=== PATIENT | female | born 1990 | race Caucasian/White ===

== ENCOUNTER 2016-05-27 08:32 | Inpatient (IN) | payer MEDICAID ==
[2016-05-27] MEDS ORDERED: RINGERS SOLUTION,LACTATED 1,000 ML IV ONE (08:36)
[2016-05-27] MEDS ORDERED: OXYTOCIN/NORMAL SALINE 1,000 ML IV PRN ×2 (08:36→19:36)
[2016-05-27] MEDS ORDERED: MISOPROSTOL 0.2 MG TABLET ONE (08:42)
[2016-05-27] MEDS ORDERED: LIDOCAINE 1% INJ-PF (10 MG/ML) 30 ML SDV ONE (08:43)
[2016-05-27] MEDS ORDERED: OXYTOCIN/NORMAL SALINE 20 UNIT/1,000 ML RTUINJ ONE (08:43)
[2016-05-27 09:10] LABS: APPEARANCE,URINE CLOUDY; BILIRUBIN,URINE NEGATIVE (NEGATIVE); GLUCOSE, URINE NEGATIVE (NEGATIVE); KETONES,URINE NEGATIVE (NEGATIVE); LEUKOCYTE ESTERASE,URINE MODERATE (NEGATIVE); NITRITE,URINE NEGATIVE (NEGATIVE); PROTEIN,URINE NEGATIVE (NEGATIVE); URINE SPECIFIC GRAVITY 1.011; UROBILINOGEN,URINE NEGATIVE mg/dL (<2.0)
[2016-05-27 09:23] LABS: ABSOLUTE EOSINOPHILS # (AUTO) 0.1 10^3/uL (0.0-0.6); ABSOLUTE LYMPHOCYTES (AUTO) 1.6 10^3/uL (0.5-4.7); ABSOLUTE MONOCYTES (AUTO) 0.8 10^3/uL (0.1-1.4); ABSOLUTE NEUT (AUTO) 6.9 10^3/uL (1.7-8.2); BASOPHILS % (AUTO) 0.3 % (0-2); EOSINOPHILS % (AUTO) 0.8 % (0-6); HEMATOCRIT 30.7 % (36.0-47.0); HEMOGLOBIN 10.6 g/dL (12.0-15.5); HGB HCT DIFFERENCE 1.1; LYMPHOCYTES % (AUTO) 16.9 % (13-45); MEAN CORPUSCULAR HEMOGLOBIN 28.9 pg (27.0-33.4); MEAN CORPUSCULAR HGB CONC 34.6 g/dL (32.0-36.0); MEAN CORPUSCULAR VOLUME 84 fl (80-97); MONOCYTES % (AUTO) 8.1 % (3-13); RED BLOOD COUNT 3.67 10^6/uL (3.72-5.28); RED CELL DISTRIBUTION WIDTH 14.1 % (11.5-14.0); SEGMENTED NEUTROPHILS % (AUTO) 73.9 % (42-78); WHITE BLOOD COUNT 9.3 10^3/uL (4.0-10.5)
[2016-05-27 09:24] LABS: URINE BARBITURATES SCREEN NEGATIVE; URINE METHADONE SCREEN NEGATIVE; URINE OPIATES LOW NEGATIVE; URINE PHENCYCLIDINE SCREEN NEGATIVE
[2016-05-27] MEDS ORDERED: FENTANYL/BUPIVACAINE/NS/PF 200 MCG/100 ML RTUINJ EPI ONE (13:00)
[2016-05-27] MEDS ORDERED: EPHEDRINE SULFATE INJ 50 MG/1 ML AMPULE ONE (13:00)
[2016-05-27] MEDS ORDERED: BUPIVACAINE HCL 0.25 % INJ/PF (2.5 MG/1 ML) 30 ML VIAL ONE (13:00)
[2016-05-27] MEDS: RINGERS SOLUTION,LACTATED 1,000 ML IV PRN ×3 (15:11→15:21)
[2016-05-27] MEDS ORDERED: IBUPROFEN 800 MG TABLET ONE (19:21)
[2016-05-27] MEDS ORDERED: DIPH/PERTUSS(ACELL)/TETANUS VAC/PF 0.5 ML SYR (>=10YO) IM PRN (19:36)
[2016-05-27] MEDS ORDERED: BENZOCAINE/MENTHOL AEROSOL SPRAY 56 ML TOP PRN (19:36)
[2016-05-27] MEDS ORDERED: MEASLES,MUMPS&RUBELLA VACC/PF 0.5 ML VIAL SUBCUT PRN (19:36)
[2016-05-27] MEDS ORDERED: DIBUCAINE 1% OINTMENT 28 GM TP PRN (19:36)
[2016-05-27] MEDS ORDERED: ZOLPIDEM TARTRATE 5 MG TABLET PO PRN (19:36)
--- NOTE | 2016-05-27 20:01 | L&D Flow Sheet ---
LD Flowsheet Datetime Report Generated by CPN: 05/27/2016 20:00 Datetime: 05/27/2016 19:55 NBP Sys/Carli/Mean (mmHg): 125 (QS system process) : 78 (QS system process) : 97 (QS system process) Pulse: 103 (QS system process) Datetime: 05/27/2016 19:40 NBP Sys/Carli/Mean (mmHg): 126 (QS system process) : 79 (QS system process) : 98 (QS system process) Pulse: 86 (QS system process) Datetime: 05/27/2016 19:30 Level of Consciousness: Fully Conscious (Walt Blanco, RN) Headache: Denies (Walt Blanco, RN) Breath Sounds, Left: Clear and Equal (Walt Blanco, RN) Breath Sounds, Right: Clear and Equal (Walt Bella, RN) Nausea/Vomiting: Present (Annotations: Has some nausea present ) (Walt Blanco, RN) Pitocin (milliunit): Pitocin Remains (milliunits) @ (Walt Bella, RN) Datetime: 05/27/2016 19:25 NBP Sys/Carli/Mean (mmHg): 125 (QS system process) : 80 (QS system process) : 96 (QS system process) Pulse: 96 (QS system process) Datetime: 05/27/2016 19:15 Stage of : Recovery (Walt Blanco RN) Pain Scale: 2 (Walt Blanco RN) Pain Presence: Constant (Walt Blanco RN) Pain Type: Burning (Walt Blanco RN) Pain Location: Perineum (Walt Blanco RN) Pain Goal: 0 (Walt Blanco RN) Pain Relief Measures: Pain Medication Given; Comfort Measures (Annotations: Ibuprofen 800mg) (Walt Blanco RN) Datetime: 05/27/2016 19:10 NBP Sys/Carli/Mean (mmHg): 127 (QS system process) : 77 (QS system process) : 98 (QS system process) Pulse: 86 (QS system process) Datetime: 05/27/2016 18:55 Stage of : Recovery (Tiffanie Ivonne Roulund, RN) NBP Sys/Carli/Mean (mmHg): 131 (QS system process) : 80 (QS system process) : 98 (QS system process) Pulse: 92 (QS system process) Respirations: 18 (Tiffanie Rowe RN) Pain Scale: 2 (Tiffanie Rowe RN) Pain Presence: Constant (Tiffanie Rowe RN) Pain Type: Burning (Tiffanie Rowe RN) Pain Location: Perineum (Tiffanie Rowe RN) Pain Relief Measures: Comfort Measures (Tiffanie Rowe RN) Datetime: 05/27/2016 18:41 Stage of : Recovery (Tiffanie Rowe RN) NBP Sys/Carli/Mean (mmHg): 132 (QS system process) : 78 (QS system process) : 97 (QS system process) Pulse: 93 (QS system process) Respirations: 20 (Tiffanie Rowe RN) Temperature (F): 98.5 (Tiffanie Rowe RN) Temperature (C): 36.9 (QS system process) Temperature Route: Oral (Tiffanie Rowe RN) Pain Scale: 3 (Tiffanie Rowe RN) Pain Presence: Constant (Tiffanie Rowe RN) Pain Type: Burning (Tiffanie Rowe RN) Pain Location: Perineum (Tiffanie Rowe, DELIA) Pain Relief Measures: Comfort Measures (Tiffanie Rowe RN) Datetime: 05/27/2016 18:25 Stage of : Recovery (Tiffanie Rowe RN) NBP Sys/Carli/Mean (mmHg): 138 (QS system process) : 65 (QS system process) : 94 (QS system process) Pulse: 104 (QS system process) Respirations: 20 (Tiffanie Rowe RN) Pain Scale: 3 (Tiffanie Rowe RN) Pain Presence: Constant (Tiffanie Rowe RN) Pain Type: Burning (Tiffanie Rowe RN) Pain Location: Perineum (Tiffanie Rowe RN) Pain Goal: 1 (Tiffanie Rowe RN) Pain Relief Measures: Comfort Measures (Tiffanie Rowe RN) Datetime: 05/27/2016 18:13 Stage of : Labor (Tiffanie Rowe RN) Respirations: 22 (Tiffanie Rowe RN) Monitor Mode: External; Palpation (Tiffanie Rowe RN) Frequency (min): 2-2.5 (Tiffanie Ivonne Roulund, RN) Quality: Moderate to Strong (Tiffanie Rowe RN) Duration (sec): 60-70 (Tifafnie Rowe, RN) Resting Tone (Palpate): Relaxed (Tiffanie Rowe, DELIA) Monitor Mode: External US (Tiffanie Rowe RN) Monitor Interventions for FHR: Ultrasound Adjusted (Tiffanie Rowe RN) FHR Baseline Rate : 95 (Tiffanie Rowe RN) FHR Baseline Changes: Bradycardia (Tiffanie Rowe, DELIA) Variability: Moderate 6-25 bpm (Tiffanie Rowe, RN) Accelerations: 15X15 (Tiffanie Rowe, RN) Decelerations: None (Tiffanie Rowe, DELIA) Comments: U/S HELD IN PLACE (Tiffanie Rowe, DELIA) Pain Scale: 5 (Tiffanie Rowe, DELIA) Pain Presence: Intermittent (Tiffanie Rowe RN) Pain Type: Pressure (Tiffanie Rowe RN) Pain Location: Perineum (Tiffanie Rowe, DELIA) Pain Relief Measures: Comfort Measures (Tiffanie Rowe RN) Pitocin (milliunit): Pitocin Increased to (milliunits) @ 18 (Tiffanie Rowe, DELIA) IV/Blood Work: IV Infusing per Order (Tiffanie Rowe, RN) Comfort Measures: Coaching; Family Support (Tiffanie Rowe, DELIA) Provider Reviewed Strip: Yes (Tiffanie Rowe RN) Pushing: Coached on Pushing; Urge to Push (Tiffanie Rowe, DELIA) Pushing Position: Pushing with Contractions; Pushing Lithotomy (Tiffanie Rowe, RN) Pushing Progress: Descent with Pushing; Perineal Bulging; Rectal Bulging; with Pushing; Pushing Effectively with Contractions (Tiffanie Rowe, DELIA) Stage 2 Comments: OF VIABLE MALE @ 1813, APGARS 8/9. SEE DELIVERY SUMMARY (Tiffanie Rowe, DELIA) Communication: RN at Bedside; RN Reviewed Strip; Provider at Bedside (Tiffanie Rowe RN) Communication Comments: MD REMAINED @ BS (Tiffanie Rowe RN) LaborFlag: Labor (QS system process) Datetime: 05/27/2016 18:01 Pitocin (milliunit): Pitocin Increased to (milliunits) @ 18 (Tiffanie Rowe RN) Datetime: 05/27/2016 18:00 Stage of : Labor (Tiffanie Rowe RN) NBP Sys/Carli/Mean (mmHg): 135 (QS system process) : 81 (QS system process) : 102 (QS system process) Pulse: 139 (QS system process) Respirations: 22 (Tiffanie Rowe RN) Monitor Mode: External (Tiffanie Rowe RN) Monitor Interventions for UA: Mcneal Adjusted (Tiffanie Rowe RN) Frequency (min): 1.5-3 (Tiffanie Rowe RN) Quality: Moderate to Strong (Tiffanie Rowe RN) Duration (sec): 60-70 (Tiffanie Ivonne Roulund, RN) Resting Tone (Palpate): Relaxed (Tiffanie Rowe, RN) Monitor Mode: External US (Tiffanie Rowe, RN) Monitor Interventions for FHR: Ultrasound Adjusted (Tiffanie Rowe, RN) FHR Baseline Rate : 95 (Tiffanie Rowe, RN) FHR Baseline Changes: No Baseline Change (Tiffanie Rowe, RN) Variability: Moderate 6-25 bpm (Tiffanie Rowe, RN) Accelerations: 15X15 (Tiffanie Rowe, RN) Decelerations: None (Tiffanie Rowe, RN) Comments: U/S HELD IN PLACE (Tiffanie Rowe, RN) Pain Scale: 5 (Tiffanie Rowe, DELIA) Pain Presence: Intermittent (Tiffanie Rowe, RN) Pain Type: Pressure (Tiffanie Rowe, RN) Pain Location: Perineum (Tiffanie Rowe, RN) Pain Relief Measures: Comfort Measures (Tiffanie Rowe, DELIA) Pitocin (milliunit): Pitocin Increased to (milliunits) @ 18 (Tiffanie Rowe, RN) IV/Blood Work: IV Infusing per Order (Tiffanie Rowe, DELIA) Comfort Measures: Coaching; Family Support (Tiffanie Rowe, DELIA) Provider Reviewed Strip: Yes (Tiffanie Rowe, DELIA) Pushing: Coached on Pushing; Urge to Push (Tiffanie Rowe, RN) Pushing Position: Pushing with Contractions; Pushing Lithotomy (Tiffanie Rowe, RN) Pushing Progress: Descent with Pushing; Perineal Bulging; Rectal Bulging; Presenting Part Visible; Pushing Effectively with Contractions (Tiffanie Rowe, RN) Communication: RN at Bedside; RN Reviewed Strip; Provider at Bedside (Tiffanie Rowe, DELIA) LaborFlag: Labor (QS system process) Datetime: 05/27/2016 17:47 NBP Sys/Carli/Mean (mmHg): 132 (QS system process) : 76 (QS system process) : 97 (QS system process) Pulse: 136 (QS system process) LaborFlag: Labor (QS system process) Datetime: 05/27/2016 17:34 Communication: RN at Bedside; Provider at Bedside (Tiffanie Rowe RN) Communication Comments: DR ROSA @ BS (Tiffanie Rowe RN) Datetime: 05/27/2016 17:30 Stage of : Labor (Tiffanie Rowe RN) Respirations: 22 (Tiffanie Rowe RN) Monitor Mode: External (Tiffanie Rowe RN) Frequency (min): 1.5-2.5 (Tiffanie Rowe, DELIA) Quality: Moderate to Strong (Tiffanie Rowe, DELIA) Duration (sec): 60-70 (Tiffanie Rowe, RN) Resting Tone (Palpate): Relaxed (Tiffanie Rowe RN) Monitor Mode: External US (Tiffanie Rowe RN) Monitor Interventions for FHR: Ultrasound Adjusted (Tiffanie Rowe RN) FHR Baseline Rate : 100 (Tiffanie Rowe RN) FHR Baseline Changes: No Baseline Change (Tiffanie Rowe, DELIA) Variability: Moderate 6-25 bpm (Tiffanie Rowe, DELIA) Accelerations: 15X15 (Tiffanie Rowe, DELIA) Decelerations: None (Tiffanie Rowe, DELIA) Pain Presence: Intermittent (Tiffanie Rowe RN) Pain Type: Pressure (Tiffanie Rowe RN) Pain Location: Perineum (Tiffanie Rowe RN) Pain Relief Measures: Comfort Measures (Tiffanie Rowe RN) Pitocin (milliunit): Pitocin Remains (milliunits) @ 16 (Tiffanie Rowe, RN) IV/Blood Work: IV Infusing per Order (Tiffanie Rowe, DELIA) Comfort Measures: Coaching; Family Support (Tiffanie Rowe, DELIA) Pushing: Coached on Pushing; Urge to Push (Tiffanie Rowe, DELIA) Pushing Position: Pushing with Contractions; Pushing Lithotomy (Tiffanie Rowe, RN) Pushing Progress: Descent with Pushing; Perineal Bulging; Rectal Bulging; Presenting Part Visible; Pushing Effectively with Contractions (Tiffanie Rowe, DELIA) Communication: RN at Bedside; RN Reviewed Strip (Tiffanie Rowe RN) LaborFlag: Labor (QS system process) Datetime: 05/27/2016 17:16 NBP Sys/Carli/Mean (mmHg): 125 (QS system process) : 77 (QS system process) : 96 (QS system process) Pulse: 123 (QS system process) LaborFlag: Labor (QS system process) Datetime: 05/27/2016 17:15 Respirations: 22 (Tiffanie Rowe RN) Monitor Mode: External; Palpation (Tiffanie Rowe RN) Frequency (min): 1.5-2.5 (Tiffanie Rowe RN) Quality: Moderate to Strong (Tiffanie Rowe RN) Duration (sec): 60-70 (Tiffanie oRwe RN) Resting Tone (Palpate): Relaxed (Tiffanie Rowe RN) Monitor Mode: External US (Tiffanie Rowe RN) Monitor Interventions for FHR: Ultrasound Adjusted (Tiffanie Rowe RN) FHR Baseline Rate : 115 (Tiffanie Rowe RN) FHR Baseline Changes: No Baseline Change (Tiffanie Rowe RN) Variability: Moderate 6-25 bpm (Tiffanie Rowe RN) Accelerations: 15X15 (Tiffanie Rowe RN) Decelerations: None (Tiffanie Rowe RN) Pain Scale: 4 (Tiffanie Rowe, DELIA) Pain Presence: Intermittent (Tiffanie Rowe RN) Pain Type: Pressure (Tiffanie Rowe RN) Pain Location: Perineum (Tiffanie Rowe, DELIA) Pain Relief Measures: Comfort Measures (Tiffanie Rowe, DELIA) Pitocin (milliunit): Pitocin Remains (milliunits) @ 16 (Tiffanie Rowe, DELIA) IV/Blood Work: IV Infusing per Order (Tiffanie Rowe, DELIA) Comfort Measures: Coaching; Family Support (Tiffanie Rowe, DELIA) Pushing: Coached on Pushing; Urge to Push (Tiffanie Rowe, DELIA) Pushing Position: Pushing with Contractions; Pushing Lithotomy (Tiffanie Rowe, DELIA) Pushing Progress: Descent with Pushing; Perineal Bulging; Rectal Bulging; Presenting Part Visible; Pushing Effectively with Contractions (Tiffanie Rowe, DELIA) LaborFlag: Labor (QS system process) Datetime: 05/27/2016 17:01 NBP Sys/Carli/Mean (mmHg): 118 (QS system process) : 83 (QS system process) : 97 (QS system process) Pulse: 113 (QS system process) LaborFlag: Labor (QS system process) Datetime: 05/27/2016 17:00 Stage of : Labor (Tiffanie Rowe RN) Respirations: 22 (Tiffanie Rowe, RN) Monitor Mode: External (Tiffanie Rowe, RN) Monitor Interventions for UA: Mcneal Adjusted (Tiffanie Rowe, RN) Frequency (min): 1.5-2.5 (Tiffanie Rowe, DELIA) Quality: Moderate to Strong (Tiffanie Rowe, DELIA) Duration (sec): 60-70 (Tiffanie Rowe, RN) Resting Tone (Palpate): Relaxed (Tiffanie Rowe, DELIA) Monitor Mode: External US (Tiffanie Rowe, DELIA) Monitor Interventions for FHR: Ultrasound Adjusted (Tiffanie Rowe, DELIA) FHR Baseline Rate : 115 (Tiffanie Rowe, DELIA) FHR Baseline Changes: Unable to Determine (Tiffanie Rowe, DELIA) Variability: Moderate 6-25 bpm (Tiffanie Rowe, DELIA) Accelerations: None (Tiffanie Rowe, DELIA) Decelerations: Early; Variable (Tiffanie Rowe, DELIA) Pain Scale: 4 (Tiffanie Rowe, DELIA) Pain Presence: Intermittent (Tiffanie Rowe, DELIA) Pain Type: Pressure (Tiffanie Rowe, DELIA) Pain Location: Perineum (Tiffanie Rowe, DELIA) Pain Relief Measures: Comfort Measures (Tiffanie Rowe, DELIA) Station: 3 (Tiffanie Rowe RN) Exam by: ADINA ROWE RN (Tiffanie Rowe, RN) Pitocin (milliunit): Pitocin Remains (milliunits) @ 16 (Tiffanie Rowe, DELIA) IV/Blood Work: IV Infusing per Order (Tiffanie Rowe RN) Procedures: Sterile Vag Exam (Tiffanie Rowe RN) Comfort Measures: Coaching; Family Support (Tiffanie Rowe RN) Pushing: Coached on Pushing; Urge to Push (Tiffanie Rowe RN) Pushing Position: Pushing with Contractions; Pushing Lithotomy (Tiffanie Rowe RN) Pushing Progress: Perineal Bulging; Pushing Effectively with Contractions (Tiffanie Rowe RN) Communication: RN at Bedside; RN Reviewed Strip (Tiffanie Rowe RN) LaborFlag: Labor (QS system process) Datetime: 05/27/2016 16:53 I/O Interventions: Burton Discontinued (Tiffanie Rowe RN) Datetime: 05/27/2016 16:47 NBP Sys/Carli/Mean (mmHg): 134 (QS system process) : 89 (QS system process) : 108 (QS system process) Pulse: 153 (QS system process) LaborFlag: Labor (QS system process) Datetime: 05/27/2016 16:45 Stage of : Labor (Tiffanie Rowe RN) Respirations: 22 (Tiffanie Rowe RN) Monitor Mode: External; Palpation (Tiffanie Rowe, DELIA) Frequency (min): 1.5-3 (Tiffanie Rowe, DELIA) Quality: Moderate to Strong (Tiffanie Rowe RN) Duration (sec): 60-70 (Tiffanie Rowe, RN) Resting Tone (Palpate): Relaxed (Tiffanie Rowe, RN) Monitor Mode: External US (Tiffanie Rowe, RN) FHR Baseline Rate : 145 (Tiffanie Rowe RN) FHR Baseline Changes: No Baseline Change (Tiffanie Rowe, DELIA) Variability: Moderate 6-25 bpm (Tiffanie Rowe, RN) Accelerations: None (Tiffanie Rowe, RN) Decelerations: Early (Tiffanie Rowe, DELIA) Pain Scale: 4 (Tiffanie Rowe, RN) Pain Presence: Intermittent (Tiffanie Rowe, RN) Pain Type: Pressure (Tiffanie Rowe, RN) Pain Location: Perineum (Tiffanie Rowe, DELIA) Pain Relief Measures: Comfort Measures (Tiffanie Rowe RN) Pitocin (milliunit): Pitocin Remains (milliunits) @ 16 (Tiffanie Rowe, RN) IV/Blood Work: IV Infusing per Order (Tiffanie Rowe, DELIA) Comfort Measures: Coaching; Family Support (Tiffanie Rowe RN) Pushing: Coached on Pushing; Urge to Push (Tiffanie Rowe RN) Pushing Position: Pushing with Contractions; Pushing Lithotomy (Tiffanie Rowe RN) Pushing Progress: Pushing Effectively with Contractions (Tiffanie Rowe RN) Communication: RN at Bedside; RN Reviewed Strip (Tiffanie Rowe RN) LaborFlag: Labor (QS system process) Datetime: 05/27/2016 16:38 Stage of : Labor (Tiffanie Rowe RN) Pushing: Coached on Pushing; Urge to Push (Tiffanie Rowe RN) Pushing Position: Pushing with Contractions; Pushing Lithotomy (Tiffanie Rowe RN) Pushing Progress: Ineffective Pushing (Tiffanie Rowe RN) Communication: RN at Bedside (Annotations: RN REMAINS @ BS WHILE PUSHING) (Tiffanie Rowe RN) Datetime: 05/27/2016 16:30 Stage of : Labor (Tiffanie Rowe RN) NBP Sys/Carli/Mean (mmHg): 123 (QS system process) : 84 (QS system process) : 98 (QS system process) Pulse: 117 (QS system process) Respirations: 22 (Tiffanie Rowe RN) Monitor Mode: External (Tiffanie Rowe RN) Frequency (min): 1-3 (Tiffanie Rowe RN) Quality: Moderate to Strong (Tiffanie Rowe RN) Resting Tone (Palpate): Relaxed (Tiffanie Rowe RN) Monitor Mode: External US (Tiffanie Rowe RN) Monitor Interventions for FHR: Ultrasound Adjusted (Tiffanie Rowe RN) FHR Baseline Rate : 135 (Tiffanie Rowe RN) FHR Baseline Changes: No Baseline Change (Tiffanie Rowe RN) Variability: Moderate 6-25 bpm (Tiffanie Rowe RN) Accelerations: None (Tiffanie Rowe RN) Decelerations: Early; Variable (Tiffanie Rowe RN) Pain Scale: 4 (Tiffanie Rowe RN) Pain Presence: Intermittent (Tiffanie Rowe RN) Pain Type: Pressure (Tiffanie Rowe RN) Pain Location: Perineum (Tiffanie Rowe, DELIA) Pain Relief Measures: Comfort Measures (Tiffanie Rowe RN) Pain Coping: Breathing Through Contractions (Tiffanie Rowe RN) Dilatation (cm): 10.0 (Tiffanie Rowe RN) Effacement (%): 100 (Tiffanie Rowe, DELIA) Station: 2 (Tiffanie Rowe, DELIA) Exam by: ADINA ROWE RN (Tiffanie Rowe, RN) Pitocin (milliunit): Pitocin Remains (milliunits) @ 16 (Tiffanie Rowe, DELIA) IV/Blood Work: IV Infusing per Order (Tiffanie Rowe RN) Procedures: Sterile Vag Exam (Tiffanie Rowe RN) Patient Position/Activity: Low Fowlers (Tiffanie Rowe RN) Comfort Measures: Breathing/Relaxation; Coaching; Family Support (Tiffanie Rowe RN) Communication: RN at Bedside; RN Reviewed Strip (Tiffanie Rowe RN) LaborFlag: Labor (QS system process) Datetime: 05/27/2016 16:20 Stage of : Labor (Tiffanie Rowe RN) Communication: Report Given to @ DR MOE BONDS CNM (Tiffanie Rowe RN) Notification Reason: Status Update; Labor Status; Pain; Other (Tiffanie Rowe RN) Communication Comments: SVE (Tiffanie Rowe RN) Datetime: 05/27/2016 16:17 NBP Sys/Carli/Mean (mmHg): 133 (QS system process) : 91 (QS system process) : 102 (QS system process) Pulse: 113 (QS system process) LaborFlag: Labor (QS system process) Datetime: 05/27/2016 16:15 Stage of : Labor (Tiffanie Rowe RN) Respirations: 20 (Tiffanie Rowe, DELIA) Monitor Mode: External; Palpation (Tiffanie Rowe RN) Monitor Interventions for UA: Mcneal Adjusted (Tiffanie Rowe RN) Frequency (min): 1.5-3 (Tiffanie Rowe RN) Quality: Moderate to Strong (Tiffanie Rowe RN) Duration (sec): 60-70 (Tiffanie Rowe, DELIA) Resting Tone (Palpate): Relaxed (Tiffanie Rowe, DELIA) Monitor Mode: External US (Tiffanie Rowe, DELIA) Monitor Interventions for FHR: Ultrasound Adjusted (Tiffanie Rowe RN) FHR Baseline Rate : 115 (Tiffanie Rowe RN) FHR Baseline Changes: No Baseline Change (Tfifanie Rowe, DELIA) Variability: Moderate 6-25 bpm (Tiffanie Rowe RN) Accelerations: 15X15 (Tiffanie Rowe, DELIA) Decelerations: Variable (Tiffanie Rowe, DELIA) Pain Scale: 2 (Tiffanie Rowe RN) Pain Presence: Intermittent (Tiffanie Rowe RN) Pain Type: Pressure (Tiffanie Rowe RN) Pain Location: Perineum (Tiffanie Rowe, DELIA) Pain Relief Measures: Comfort Measures (Tiffanie Rowe RN) Pain Coping: Breathing Through Contractions (Tiffanie Rowe RN) Pitocin (milliunit): Pitocin Remains (milliunits) @ 16 (Tiffanie Rowe RN) IV/Blood Work: IV Infusing per Order (Tiffanie Rowe, RN) Patient Position/Activity: Left Extreme; Peanut Ball (Tiffanie Rowe, DELIA) Comfort Measures: Family Support (Tiffanie Rowe, RN) Communication: RN at Bedside; RN Reviewed Strip (Tiffanie Rowe RN) LaborFlag: Labor (QS system process) Datetime: 05/27/2016 16:06 NBP Sys/Carli/Mean (mmHg): 129 (QS system process) : 82 (QS system process) : 99 (QS system process) Pulse: 105 (QS system process) LaborFlag: Labor (QS system process) Datetime: 05/27/2016 16:02 Stage of : Labor (Tiffanie Rowe RN) Respirations: 20 (Tiffanie Rowe RN) Monitor Mode: External; Palpation (Tiffanie Rowe RN) Monitor Interventions for UA: Mcneal Adjusted (Tiffanie Rowe RN) Frequency (min): 1.5-4 (Tiffanie Rowe, RN) Quality: Moderate to Strong (Tiffanie Rowe, RN) Duration (sec): 55-70 (Tiffanie Rowe, RN) Resting Tone (Palpate): Relaxed (Tiffanie Rowe, RN) Monitor Mode: External US (Tiffanie Rowe, RN) Monitor Interventions for FHR: Ultrasound Adjusted (Tiffanie Rowe RN) FHR Baseline Rate : 130 (Tiffanie Rowe, RN) FHR Baseline Changes: No Baseline Change (Tiffanie Rowe, RN) Variability: Moderate 6-25 bpm (Tiffanie Rowe, RN) Accelerations: 15X15 (Tiffanie Rowe, RN) Decelerations: Prolonged (Tiffanie Rowe, RN) Pain Scale: 2 (Tiffanie Rowe, DELIA) Pain Presence: Intermittent (Tiffanie Rowe, RN) Pain Type: Pressure (Tiffanie Rowe, RN) Pain Location: Perineum (Tiffanie Rowe, RN) Pain Relief Measures: Comfort Measures (Tiffanie Rowe, RN) Pain Coping: Breathing Through Contractions (Tiffanie Rowe, RN) Pitocin (milliunit): Pitocin Remains (milliunits) @ 16 (Tiffanie Rowe, RN) IV/Blood Work: IV Infusing per Order (Tiffanie Rowe, RN) Patient Position/Activity: Left Extreme; Peanut Ball (Tiffanie Roew, RN) Comfort Measures: Coaching; Family Support (Tiffanie Rowe, RN) Instructional Method: Verbal; Patient Instructed; Family/Support Person Instructed; Verbalized Understanding (Tiffanie Rowe, RN) Plan of Care: Labor (Tiffanie Rowe, RN) Labor/Induction: Labor Stages (Tiffanie Rowe, DELIA) Pain Management: Comfort Measures (Tiffanie Rowe, RN) Communication: RN at Bedside; RN Reviewed Strip (Tiffanie Rowe, DELIA) LaborFlag: Labor (QS system process) Datetime: 05/27/2016 15:45 Stage of : Labor (Tiffanie Rowe, DELIA) NBP Sys/Carli/Mean (mmHg): 106 (QS system process) : 59 (QS system process) : 78 (QS system process) Pulse: 90 (QS system process) Respirations: 20 (Tiffanie Rowe, RN) Monitor Mode: External; Palpation (Tiffanie Rowe, RN) Monitor Interventions for UA: Mcneal Adjusted (Tiffanie Rowe RN) Frequency (min): 1.5-3 (Tiffanie Rowe, DELIA) Quality: Moderate (Tiffanie Rowe, RN) Duration (sec): 55-70 (Tiffanie Rowe, RN) Resting Tone (Palpate): Relaxed (Tiffanie Rowe, RN) Monitor Mode: External US (Tiffanie Rowe, RN) Monitor Interventions for FHR: Ultrasound Adjusted (Tiffanie Rowe, RN) FHR Baseline Rate : 125 (Tiffanie Rowe, RN) FHR Baseline Changes: No Baseline Change (Tiffanie Rowe, RN) Variability: Moderate 6-25 bpm (Tiffanie Rowe, RN) Accelerations: None (Tiffanie Rowe, RN) Decelerations: Early; Variable (Tiffanie Rowe, DELIA) Pain Relief Measures: Comfort Measures (Tiffanie Rowe, DELIA) Pain Coping: Talking Through Contractions (Tiffanie Rowe, DELIA) Pitocin (milliunit): Pitocin Increased to (milliunits) @ (Annotations: 16) (Tiffanie Rowe, DELIA) IV/Blood Work: IV Infusing per Order (Tiffanie Rowe RN) Patient Position/Activity: Peanut Ball; Right Extreme (Tiffanie Rowe, DELIA) Comfort Measures: Family Support (Tiffanie Rowe RN) I/O Interventions: Popsicle (Tiffanie Rowe, RN) Communication: RN at Bedside; RN Reviewed Strip (Tiffanie Rowe RN) LaborFlag: Labor (QS system process) Datetime: 05/27/2016 15:31 NBP Sys/Carli/Mean (mmHg): 128 (QS system process) : 75 (QS system process) : 97 (QS system process) Pulse: 103 (QS system process) LaborFlag: Labor (QS system process) Datetime: 05/27/2016 15:20 Stage of : Labor (Tiffanie Rowe RN) IV/Blood Work: New IV Bag Hung (Tiffanie Rowe RN) Communication: RN at Bedside (Tiffanie Rowe RN) Datetime: 05/27/2016 15:16 Stage of : Labor (Tiffanie Rowe RN) NBP Sys/Carli/Mean (mmHg): 118 (QS system process) : 75 (QS system process) : 91 (QS system process) Pulse: 93 (QS system process) Respirations: 18 (Tiffanie Rowe RN) Monitor Mode: External (Tiffanie Rowe RN) Frequency (min): 2-4 (Tiffanie Rowe RN) Quality: Moderate (Tiffanie Rowe RN) Duration (sec): 50-70 (Tiffanie Rowe, DELIA) Resting Tone (Palpate): Relaxed (Tiffanie Rowe, DELIA) Monitor Mode: External US (Tiffanie Rowe RN) FHR Baseline Rate : 125 (Tiffanie Rowe RN) FHR Baseline Changes: No Baseline Change (Tiffanie Rowe, DELIA) Variability: Moderate 6-25 bpm (Tiffanie Rowe, RN) Accelerations: 15X15 (Tiffanie Rowe, RN) Decelerations: Variable (Tiffanie Rowe, DELIA) Pain Relief Measures: Comfort Measures (Tiffanie Rowe, RN) Pain Coping: Talking Through Contractions (Tiffanie Rowe, DELIA) Pitocin (milliunit): Pitocin Increased to (milliunits) @ 14 (Tiffanie Rowe, DELIA) IV/Blood Work: IV Infusing per Order (Tiffanie Rowe, DELIA) Patient Position/Activity: Left Extreme; Peanut Ball (Tiffanie Rowe, RN) Comfort Measures: Family Support (Tiffanie Rowe RN) Communication: RN at Bedside; RN Reviewed Strip (Tiffanie Rowe RN) LaborFlag: Labor (QS system process) Datetime: 05/27/2016 15:00 Stage of : Labor (Tiffanie Rowe RN) Respirations: 18 (Tiffanie Rowe RN) Temperature (F): 98.1 (Tiffanie Rowe RN) Temperature (C): 36.7 (QS system process) Monitor Mode: External; Palpation (Tiffanie Rowe RN) Monitor Interventions for UA: Mcneal Adjusted (Tiffanie Rowe RN) Frequency (min): 2-3.5 (Tiffanie Rowe RN) Quality: Moderate (Tiffanie Rowe RN) Duration (sec): 55-60 (Tiffanie Rowe, DELIA) Resting Tone (Palpate): Relaxed (Tiffanie Rowe RN) Monitor Mode: External US (Tiffanie Rowe RN) Monitor Interventions for FHR: Ultrasound Adjusted (Tiffanie Rowe RN) FHR Baseline Rate : 125 (Tiffanie Rowe RN) FHR Baseline Changes: No Baseline Change (Tiffanie Rowe RN) Variability: Moderate 6-25 bpm (Tiffanie Rowe RN) Accelerations: 15X15 (Tiffanie Rowe RN) Decelerations: Early (Tiffanie Rowe RN) Pain Scale: 0 (Tiffanie Rowe RN) Pain Presence: None/Denies (Tiffanie Rowe RN) Pain Type: Pressure (Tiffanie Rowe RN) Pain Location: Abdomen; Perineum (Tiffanie Rowe RN) Pain Relief Measures: Comfort Measures (Tiffanie Rowe RN) Pain Coping: Talking Through Contractions (Tiffanie Rowe RN) Pitocin (milliunit): Pitocin Increased to (milliunits) @ 12 (Tiffanie Rowe RN) IV/Blood Work: IV Infusing per Order (Tiffanie Rowe RN) Patient Position/Activity: Left Extreme; Peanut Ball (Tiffanie Rowe, DELIA) Comfort Measures: Family Support (Tiffanie Rowe RN) Communication: RN at Bedside; RN Reviewed Strip (Tiffanie Rowe RN) LaborFlag: Labor (QS system process) Datetime: 05/27/2016 14:48 Stage of : Labor (Tiffanie Rowe RN) Patient Position/Activity: Left Extreme; Peanut Ball (Tiffanie Rowe RN) Communication: RN at Bedside (Tiffanie Rowe RN) Datetime: 05/27/2016 14:46 Stage of : Labor (Tiffanie Rowe, DELIA) NBP Sys/Carli/Mean (mmHg): 111 (QS system process) : 77 (QS system process) : 90 (QS system process) Pulse: 100 (QS system process) Dilatation (cm): 4.0 (Tiffanie Rowe, DELIA) Effacement (%): 80 (Tiffanie Rowe, RN) Station: -1 (Tiffanie Rowe, RN) Exam by: Surendra BONDS CNM (Tiffanie Rowe, RN) Amniotic Fluid Color: Clear (Tiffanie Rowe, DELIA) Vaginal Bleeding: Normal Show (Tiffanie Rowe RN) Cervix, Consistency: Soft (Tiffanie Rowe, DELIA) Cervix, Position: Midposition (Tiffanie Rowe, DELIA) Pitocin (milliunit): Pitocin Remains (milliunits) @ 10 (Tiffanie Rowe, DELIA) Provider Reviewed Strip: Yes (Tiffanie Rowe, DELIA) Communication: RN at Bedside; RN Reviewed Strip; Provider at Bedside (Tiffanie Rowe, DELIA) Communication Comments: Surendra BONDS CNM @ BS (Tiffanie Rowe, DELIA) LaborFlag: Labor (QS system process) Datetime: 05/27/2016 14:43 Pulse: 113 (QS system process) SpO2 (%): 100 (QS system process) LaborFlag: Labor (QS system process) Datetime: 05/27/2016 14:42 Respirations: 18 (Tiffanie Rowe RN) Monitor Mode: External (Tiffanie Rowe RN) Frequency (min): 2-2.5 (Tiffanie Rowe RN) Quality: Moderate (Tiffanie Rowe RN) Duration (sec): 60-80 (Tiffanie Rowe RN) Resting Tone (Palpate): Relaxed (Tiffanie Rowe RN) Monitor Mode: External US (Tiffanie Rowe RN) FHR Baseline Rate : 125 (Tiffanie Rowe RN) FHR Baseline Changes: No Baseline Change (Tiffanie Rowe RN) Variability: Moderate 6-25 bpm (Tiffanie Rowe RN) Accelerations: 15X15 (Tiffanie Rowe, DELIA) Decelerations: Early (Tiffanie Rowe, DELIA) Pain Scale: 0 (Tiffanie Rowe RN) Pain Presence: Intermittent (Tiffanie Rowe RN) Pain Type: Pressure (Tiffanie Rowe, DELIA) Pain Location: Abdomen; Perineum (Tiffanie Rowe, RN) Pain Relief Measures: Comfort Measures (Tiffanie Rowe RN) Pain Coping: Talking Through Contractions (Tiffanie Rowe RN) Procedures: Sterile Vag Exam (Tiffanie Rowe, DELIA) Patient Position/Activity: Right Tilt; Low Fowlers (Tiffanie Rowe, DELIA) Comfort Measures: Family Support (Tiffanie Rowe RN) LaborFlag: Labor (QS system process) Datetime: 05/27/2016 14:38 Pulse: 93 (QS system process) SpO2 (%): 100 (QS system process) LaborFlag: Labor (QS system process) Datetime: 05/27/2016 14:33 Pulse: 98 (QS system process) SpO2 (%): 100 (QS system process) LaborFlag: Labor (QS system process) Datetime: 05/27/2016 14:32 NBP Sys/Carli/Mean (mmHg): 108 (QS system process) : 63 (QS system process) : 75 (QS system process) Pulse: 100 (QS system process) LaborFlag: Labor (QS system process) Datetime: 05/27/2016 14:30 Stage of : Labor (Tiffanie Rowe RN) Respirations: 18 (Tiffanie Rowe RN) Monitor Mode: External; Palpation (Tiffanie Rowe RN) Monitor Interventions for UA: Mcneal Adjusted (Tiffanie Rowe RN) Frequency (min): 2-3 (Tiffanie Rowe RN) Quality: Moderate (Tiffanie Rowe, DELIA) Duration (sec): 60-80 (Tiffanie Rowe, DELIA) Resting Tone (Palpate): Relaxed (Tiffanie Rowe RN) Monitor Mode: External US (Tiffanie Rowe RN) Monitor Interventions for FHR: Ultrasound Adjusted (Tiffanie Rowe RN) FHR Baseline Rate : 115 (Tiffanie Rowe RN) FHR Baseline Changes: No Baseline Change (Tiffanie Rowe, DELIA) Variability: Moderate 6-25 bpm (Tiffanie Rowe, DELIA) Accelerations: 15X15 (Tiffanie Rowe, DELIA) Decelerations: Early; Variable (Tiffanie Rowe RN) Pain Scale: 0 (Tiffanie Rowe RN) Pain Presence: Intermittent (Tiffanie Rowe RN) Pain Type: Pressure (Tiffanie Rowe RN) Pain Location: Abdomen; Perineum (Tiffanie Rowe RN) Pain Relief Measures: Comfort Measures (Tiffanie Rowe RN) Pain Coping: Talking Through Contractions (Tiffanie Rowe RN) Pitocin (milliunit): Pitocin Remains (milliunits) @ 10 (Tiffanie Rowe RN) IV/Blood Work: IV Infusing per Order (Tiffanie Rowe RN) Patient Position/Activity: Right Lateral; Low Fowlers (Tiffanie Rowe RN) Comfort Measures: Family Support (Tiffanie Rowe RN) Communication: RN at Bedside; RN Reviewed Strip (Tiffanie Rowe RN) LaborFlag: Labor (QS system process) Datetime: 05/27/2016 14:28 Pulse: 107 (QS system process) SpO2 (%): 100 (QS system process) LaborFlag: Labor (QS system process) Datetime: 05/27/2016 14:23 NBP Sys/Carli/Mean (mmHg): 117 (QS system process) : 78 (QS system process) : 91 (QS system process) Pulse: 100 (QS system process) Pulse: 93 (QS system process) SpO2 (%): 98 (QS system process) LaborFlag: Labor (QS system process) Datetime: 05/27/2016 14:18 Pulse: 91 (QS system process) SpO2 (%): 98 (QS system process) LaborFlag: Labor (QS system process) Datetime: 05/27/2016 14:17 NBP Sys/Carli/Mean (mmHg): 121 (QS system process) : 76 (QS system process) : 93 (QS system process) Pulse: 101 (QS system process) LaborFlag: Labor (QS system process) Datetime: 05/27/2016 14:15 Stage of : Labor (Tiffanie Rowe RN) Monitor Mode: External; Palpation (Tiffanie Rowe, DELIA) Monitor Interventions for UA: Mcneal Adjusted (Tiffanie Rowe, DELIA) Frequency (min): 2-2.5 (Tiffanie Rowe, DELIA) Quality: Moderate (Tiffanie Rowe RN) Duration (sec): 60-80 (Tiffanie Rowe, RN) Resting Tone (Palpate): Relaxed (Tifafnie Rowe, RN) Monitor Mode: External US (Tiffanie Rowe RN) FHR Baseline Rate : 115 (Tiffanie Rowe RN) FHR Baseline Changes: No Baseline Change (Tiffanie Rowe, DELIA) Variability: Moderate 6-25 bpm (Tiffanie Rowe, RN) Accelerations: None (Tiffanie Rowe, DELIA) Decelerations: Early (Tiffanie Rowe, DELIA) Pain Relief Measures: Comfort Measures (Tiffanie Rowe, DELIA) Pain Coping: Talking Through Contractions (Tiffanie Rowe, DELIA) Pitocin (milliunit): Pitocin Remains (milliunits) @ 10 (Tiffanie Rowe, RN) IV/Blood Work: IV Infusing per Order (Tiffanie Rowe, RN) Patient Position/Activity: Right Tilt; Low Fowlers (Tiffanie Rowe, RN) Communication: RN at Bedside; RN Reviewed Strip (Tiffanie Rowe, DELIA) LaborFlag: Labor (QS system process) Datetime: 05/27/2016 14:13 Pulse: 99 (QS system process) SpO2 (%): 100 (QS system process) LaborFlag: Labor (QS system process) Datetime: 05/27/2016 14:12 NBP Sys/Carli/Mean (mmHg): 118 (QS system process) : 75 (QS system process) : 91 (QS system process) Pulse: 103 (QS system process) LaborFlag: Labor (QS system process) Datetime: 05/27/2016 14:08 Pulse: 84 (QS system process) SpO2 (%): 100 (QS system process) LaborFlag: Labor (QS system process) Datetime: 05/27/2016 14:07 NBP Sys/Carli/Mean (mmHg): 120 (QS system process) : 70 (QS system process) : 89 (QS system process) Pulse: 88 (QS system process) LaborFlag: Labor (QS system process) Datetime: 05/27/2016 14:03 Pulse: 95 (QS system process) SpO2 (%): 100 (QS system process) LaborFlag: Labor (QS system process) Datetime: 05/27/2016 14:02 NBP Sys/Carli/Mean (mmHg): 114 (QS system process) : 67 (QS system process) : 82 (QS system process) Pulse: 97 (QS system process) LaborFlag: Labor (QS system process) Datetime: 05/27/2016 14:01 NBP Sys/Calri/Mean (mmHg): 111 (QS system process) : 56 (QS system process) : 78 (QS system process) Pulse: 92 (QS system process) LaborFlag: Labor (QS system process) Datetime: 05/27/2016 14:00 Stage of : Labor (Tiffanie Rowe RN) NBP Sys/Carli/Mean (mmHg): 118 (QS system process) : 67 (QS system process) : 85 (QS system process) Pulse: 96 (QS system process) Respirations: 20 (Tiffanie Roew RN) Monitor Mode: External (Tiffanie Rowe RN) Monitor Interventions for UA: Mcneal Adjusted (Tiffanie Rowe RN) Frequency (min): 2-2.5 (Tiffanie Rowe RN) Quality: Moderate (Tiffanie Rowe RN) Duration (sec): 55-70 (Tiffanie Rowe RN) Resting Tone (Palpate): Relaxed (Tiffanie Rowe RN) Monitor Mode: External US (Tiffanie Rowe RN) FHR Baseline Rate : 110 (Tiffanie Rowe RN) FHR Baseline Changes: No Baseline Change (Tiffanie Rowe, DELIA) Variability: Moderate 6-25 bpm (Tiffanie Rowe, DELIA) Accelerations: None (Tiffanie Rowe RN) Decelerations: Early (Tiffanie Rowe, DELIA) Pain Scale: 0 (Tiffanie Rowe RN) Pain Presence: None/Denies (Tiffanie Rowe, DELIA) Pain Type: Pressure (Tiffanie Rowe, DELIA) Pain Location: Abdomen; Perineum (Tiffanie Rowe, RN) Pain Relief Measures: Comfort Measures (Tiffanie Rowe, DELIA) Pain Coping: Talking Through Contractions (Tiffanie Rowe, DELIA) Pitocin (milliunit): Pitocin Remains (milliunits) @ 10 (Tiffanie Rowe, DELIA) IV/Blood Work: IV Infusing per Order (Tiffanie Rowe, DELIA) Patient Position/Activity: Low Fowlers (Tiffanie Rowe, DELIA) Communication: RN at Bedside; RN Reviewed Strip (Tiffanie Rowe, DELIA) LaborFlag: Labor (QS system process) Datetime: 05/27/2016 13:59 NBP Sys/Carli/Mean (mmHg): 102 (QS system process) : 54 (QS system process) : 75 (QS system process) Pulse: 95 (QS system process) LaborFlag: Labor (QS system process) Datetime: 05/27/2016 13:58 NBP Sys/Carli/Mean (mmHg): 114 (QS system process) : 59 (QS system process) : 77 (QS system process) Pulse: 110 (QS system process) Pulse: 106 (QS system process) SpO2 (%): 97 (QS system process) LaborFlag: Labor (QS system process) Datetime: 05/27/2016 13:56 NBP Sys/Carli/Mean (mmHg): 108 (QS system process) NBP Sys/Carli/Mean (mmHg): 106 (QS system process) : 60 (QS system process) : 61 (QS system process) : 80 (QS system process) : 77 (QS system process) Pulse: 83 (QS system process) Pulse: 107 (QS system process) I/O Interventions: Burton Cath Inserted (Tiffanie Rowe RN) Communication: RN at Bedside (Tiffanie Rowe RN) LaborFlag: Labor (QS system process) Datetime: 05/27/2016 13:54 Stage of : Labor (Tiffanie Rowe RN) NBP Sys/Carli/Mean (mmHg): 114 (QS system process) NBP Sys/Carli/Mean (mmHg): 107 (QS system process) : 69 (QS system process) : 66 (QS system process) : 86 (QS system process) : 81 (QS system process) Pulse: 88 (QS system process) Pulse: 106 (QS system process) Hygiene: Underpad Changed (Tiffanie Rowe RN) Anesthesia Level Check: T9 (Tiffanie Rowe RN) LaborFlag: Labor (QS system process) Datetime: 05/27/2016 13:53 Stage of : Labor (Tiffanie Rowe RN) NBP Sys/Carli/Mean (mmHg): 119 (QS system process) : 72 (QS system process) : 89 (QS system process) Pulse: 110 (QS system process) Pulse: 88 (QS system process) SpO2 (%): 100 (QS system process) Patient Position/Activity: Right Tilt; Low Fowlers (Tiffanie Rowe RN) Communication: RN at Bedside; RN Reviewed Strip (Tiffanie Rowe RN) LaborFlag: Labor (QS system process) Datetime: 05/27/2016 13:49 Stage of : Labor (Tiffanie Rowe, DELIA) NBP Sys/Carli/Mean (mmHg): 201 (QS system process) : 154 (QS system process) : 172 (QS system process) Pulse: 91 (QS system process) Epidural Procedure Other: Pump Started (Tiffanie Rowe, RN) LaborFlag: Labor (QS system process) Datetime: 05/27/2016 13:48 Pulse: 100 (QS system process) SpO2 (%): 100 (QS system process) LaborFlag: Labor (QS system process) Datetime: 05/27/2016 13:46 Stage of : Labor (Tiffanie Rowe RN) NBP Sys/Carli/Mean (mmHg): 132 (QS system process) : 85 (QS system process) : 105 (QS system process) Pulse: 88 (QS system process) Epidural Procedure: Loading Dose (Tiffanie Rowe RN) LaborFlag: Labor (QS system process) Datetime: 05/27/2016 13:45 Stage of : Labor (Tiffanie Rowe RN) NBP Sys/Carli/Mean (mmHg): 130 (QS system process) : 91 (QS system process) : 105 (QS system process) Pulse: 100 (QS system process) Respirations: 20 (Tiffanie Rowe RN) Monitor Mode: External; Palpation (Tiffanie Rowe RN) Monitor Interventions for UA: Mcneal Adjusted (Tiffanie Rowe RN) Frequency (min): 1.5-2 (Tiffanie Rowe RN) Quality: Moderate (Tiffanie Rowe, RN) Duration (sec): 60-70 (Tiffanie Rowe, RN) Resting Tone (Palpate): Relaxed (Tiffanie Rowe, DELIA) Monitor Mode: External US (Tiffanie Rowe RN) Monitor Interventions for FHR: Ultrasound Adjusted (Tiffanie Rowe RN) FHR Baseline Rate : 105 (Tiffanie Rowe RN) FHR Baseline Changes: Bradycardia (Tiffanie Rowe RN) Variability: Moderate 6-25 bpm (Tiffanie Rowe RN) Accelerations: 15X15 (Tiffanie Rowe, RN) Decelerations: None (Tiffanie Rowe RN) Pain Scale: 5 (Tiffanie Rowe RN) Pain Presence: Intermittent (Tiffanie Rowe RN) Pain Type: Contraction (Tiffanie Rowe RN) Pain Location: Abdomen (Tiffanie Rowe RN) Pain Relief Measures: Comfort Measures (Tiffanie Rowe RN) Pain Coping: Breathing Through Contractions (Tiffanie Rowe RN) Pitocin (milliunit): Pitocin Remains (milliunits) @ 12 (Tiffanie Rowe RN) Comfort Measures: Breathing/Relaxation; Coaching (Tiffanie Rowe RN) Epidural Procedure: Cath Placed (Tiffanie Rowe RN) Communication: RN at Bedside; RN Reviewed Strip; Provider at Bedside (Tiffanie Rowe RN) LaborFlag: Labor (QS system process) Datetime: 05/27/2016 13:44 NBP Sys/Carli/Mean (mmHg): 134 (QS system process) : 94 (QS system process) : 110 (QS system process) Pulse: 106 (QS system process) Anesthesia Plans: Epidural (Tiffanie Rowe RN) Epidural Procedure: Test Dose (Tiffanie Rowe RN) LaborFlag: Labor (QS system process) Datetime: 05/27/2016 13:43 NBP Sys/Carli/Mean (mmHg): 133 (QS system process) : 87 (QS system process) : 105 (QS system process) Pulse: 92 (QS system process) Pulse: 93 (QS system process) SpO2 (%): 99 (QS system process) LaborFlag: Labor (QS system process) Datetime: 05/27/2016 13:35 Stage of : Labor (Tiffanie Rowe RN) Procedure Type: EPIDURAL (Tiffanie Rowe RN) Procedure Verify: Correct Patient Identity; Correct Side and Site are Marked; Accurate Procedure Consent Form; Agreement on Procedure to be Done; Correct Patient Position (Tiffanie Rowe RN) Anesthesia Plans: Epidural (Tiffanie Rowe RN) Epidural Positioning: Sitting (Tiffanie Rowe RN) Anesthesia Comments: DR SPANN @ BS (Tiffanie Rowe RN) Datetime: 05/27/2016 13:31 NBP Sys/Carli/Mean (mmHg): 133 (QS system process) : 88 (QS system process) : 105 (QS system process) Pulse: 111 (QS system process) LaborFlag: Labor (QS system process) Datetime: 05/27/2016 13:29 Stage of : Labor (Tiffanie Rowe RN) Respirations: 22 (Tiffanie Rowe RN) Monitor Mode: External (Tiffanie Rowe RN) Frequency (min): 1.5-2 (Tiffanie Rowe RN) Quality: Moderate (Tiffanie Rowe RN) Duration (sec): 60-80 (Tiffanie Rowe RN) Resting Tone (Palpate): Relaxed (Tiffanie Rowe RN) Monitor Mode: External US (Tiffanie Rowe RN) FHR Baseline Rate : 115 (Tiffanie Rowe RN) FHR Baseline Changes: No Baseline Change (Tiffanie Rowe RN) Variability: Moderate 6-25 bpm (Tiffanie Rowe RN) Accelerations: 15X15 (Tiffanie Rowe RN) Decelerations: None (Tiffanie Rowe RN) Pain Scale: 5 (Tiffanie Ivonne Roulund, RN) Pain Presence: Intermittent (Tiffanie Rowe RN) Pain Type: Contraction (Tiffanie Rowe RN) Pain Location: Abdomen (Tiffanie Rowe RN) Pain Relief Measures: Comfort Measures (Tiffanie Rowe RN) Pain Coping: Breathing Through Contractions (Tiffanie Rowe RN) Pitocin (milliunit): Pitocin Remains (milliunits) @ 12 (Tiffanie Rwoe RN) Patient Position/Activity: High Fowlers (Tiffanie Rowe RN) Comfort Measures: Breathing/Relaxation; Coaching; Rocking Chair; Family Support (Tiffanie Rowe RN) Communication: RN at Bedside; RN Reviewed Strip (Tiffanie Rowe RN) LaborFlag: Labor (QS system process) Datetime: 05/27/2016 13:15 Stage of : Labor (Tiffanie Rowe RN) IV/Blood Work: New IV Bag Hung (Tiffanie Rowe RN) Communication: RN at Bedside; RN Reviewed Strip (Tiffanie Rowe RN) Datetime: 05/27/2016 13:08 Stage of : Labor (Tiffanie Rowe RN) Pitocin (milliunit): Pitocin Decreased to (milliunits) @ 12 (Tiffanie Rowe RN) Procedure Verify: Correct Patient Identity; Agreement on Procedure to be Done (Tiffanie Rowe RN) Anesthesia Plans: Epidural (Tiffanie Rowe RN) Communication: RN at Bedside; RN Reviewed Strip (Tiffanie Rowe RN) Datetime: 05/27/2016 13:00 Stage of : Labor (Tiffanie Rowe RN) NBP Sys/Carli/Mean (mmHg): 138 (QS system process) : 88 (QS system process) : 108 (QS system process) Pulse: 92 (QS system process) Respirations: 22 (Tiffanie Rowe RN) Temperature (F): 98.0 (Tiffanie Rowe RN) Temperature (C): 36.7 (QS system process) Temperature Route: Oral (Tiffanie Rowe RN) Monitor Mode: External (Tiffanie Rowe RN) Frequency (min): 1.5-2 (Tiffanie Rowe RN) Quality: Moderate (Tiffanie Rowe RN) Duration (sec): 60-80 (Tiffanie Rowe RN) Pattern: Tachysystole: > 5 Contractions in 10 Minutes (Tiffanie Rowe RN) Resting Tone (Palpate): Relaxed (Tiffanie Rowe RN) Monitor Mode: External US (Tiffanie Rowe RN) FHR Baseline Rate : 115 (Tiffanie Rowe RN) FHR Baseline Changes: No Baseline Change (Tiffanie Rowe RN) Variability: Moderate 6-25 bpm (Tiffanie Rowe RN) Accelerations: 15X15 (Tiffanie Rowe RN) Decelerations: None (Tiffanie Rowe RN) Pain Scale: 5 (Tiffanie Rowe RN) Pain Presence: Intermittent (Tiffanie Rowe RN) Pain Type: Contraction (Tiffanie Rowe RN) Pain Location: Abdomen (Tiffanie Rowe, DELIA) Pain Relief Measures: Comfort Measures (Tiffanie Rowe RN) Pain Coping: Breathing Through Contractions (Tiffanie Rowe RN) Pitocin (milliunit): Pitocin Remains (milliunits) @ 16 (Tiffanie Rowe, DELIA) Patient Position/Activity: High Fowlers (Tiffanie Rowe, DELIA) Comfort Measures: Breathing/Relaxation; Coaching; Family Support (Tiffanie Rowe RN) Communication: RN at Bedside; RN Reviewed Strip (Tiffanie Rowe RN) LaborFlag: Labor (QS system process) Datetime: 05/27/2016 12:45 Stage of : Labor (Tiffanie Rowe RN) Respirations: 22 (Tiffanie Rowe RN) Monitor Mode: External (Tiffanie Rowe RN) Frequency (min): 1-3 (Tiffanie Rowe RN) Quality: Moderate (Tiffanie Rowe RN) Duration (sec): 60-80 (Tiffanie Rowe, DELIA) Resting Tone (Palpate): Relaxed (Tiffanie Rowe RN) Monitor Mode: External US (Tiffanie Rowe RN) FHR Baseline Rate : 125 (Tiffanie Rowe RN) FHR Baseline Changes: No Baseline Change (Tiffanie Rowe RN) Variability: Moderate 6-25 bpm (Tiffanie Rowe RN) Accelerations: 15X15 (Tiffanie Rowe, DELIA) Decelerations: None (Tiffanie Rowe, DELIA) Pain Scale: 4 (Tiffanie Rowe RN) Pain Presence: Intermittent (Tiffanie Rowe RN) Pain Type: Contraction (Tiffanie Rowe RN) Pain Location: Abdomen (Tiffanie Rowe, DELIA) Pain Relief Measures: Comfort Measures (Tiffanie Rowe RN) Pitocin (milliunit): Pitocin Remains (milliunits) @ 16 (Tiffanie Rowe, DELIA) IV/Blood Work: New IV Bag Hung (Tiffanie Rowe, RN) Patient Position/Activity: High Fowlers (Tiffanie Rowe, DELIA) Comfort Measures: Breathing/Relaxation; Coaching; Family Support (Tiffanie Rowe, DELIA) Communication: RN at Bedside; RN Reviewed Strip (Tiffanie Rowe, DELIA) LaborFlag: Labor (QS system process) Datetime: 05/27/2016 12:40 Stage of : Labor (Tiffanie Rowe RN) Pain Scale: 4 (Tiffanie Rowe, RN) Pain Presence: Intermittent (Tiffanie Rowe RN) Pain Type: Contraction (Tiffanie Rowe RN) Pain Location: Abdomen (Tiffanie Rowe, RN) Pain Relief Measures: Comfort Measures (Tiffanie Rowe, RN) Pain Coping: Breathing Through Contractions; Requesting Pain Medication or Epidural (Tiffanie Rowe, RN) IV/Blood Work: IV Bolus Started (Tiffanie Rowe, RN) Comfort Measures: Breathing/Relaxation; Coaching; Hot/Cold Pack; Family Support (Tiffanie Rowe, RN) Procedure Verify: Correct Patient Identity; Agreement on Procedure to be Done; Relevant Images and Results are Properly Labeled and Displayed (Tiffanie Rowe, DELIA) Anesthesia Plans: Epidural (Tiffanie Rowe, DELIA) Communication: RN at Bedside; RN Reviewed Strip; Provider Orders Received (Tiffanie Rowe, DELIA) Notification Reason: Pain (Tiffanie Rowe RN) Communication Comments: orders for epidural obtained (Tiffanie Rowe, DELIA) LaborFlag: Labor (QS system process) Datetime: 05/27/2016 12:31 NBP Sys/Carli/Mean (mmHg): 125 (QS system process) : 80 (QS system process) : 99 (QS system process) Pulse: 82 (QS system process) LaborFlag: Labor (QS system process) Datetime: 05/27/2016 12:30 Stage of : Labor (Tiffnaie Rowe RN) Respirations: 20 (Tiffanie Rowe RN) Monitor Mode: External (Tiffanie Rowe RN) Frequency (min): 1.5-2.5 (Tiffanie Rowe RN) Quality: Moderate (Tiffanie Rowe RN) Duration (sec): 55-70 (Tiffanie Rowe, DELIA) Resting Tone (Palpate): Relaxed (Tiffanie Rowe RN) Monitor Mode: External US (Tiffanie Rowe RN) FHR Baseline Rate : 135 (Tiffanie Rowe RN) FHR Baseline Changes: No Baseline Change (Tiffanie Rowe RN) Variability: Moderate 6-25 bpm (Tiffanie Rowe RN) Accelerations: None (Tiffanie Rowe RN) Decelerations: Early (Tiffanie Rowe RN) Pain Scale: 3 (Tiffanie Rowe RN) Pain Presence: Intermittent (Tiffanie Rowe RN) Pain Type: Contraction (Tiffanie Rowe RN) Pain Location: Abdomen (Tiffanie Rowe RN) Pain Relief Measures: Comfort Measures (Tiffanie Rowe RN) Pain Coping: Breathing Through Contractions (Tiffanie Rowe RN) Pitocin (milliunit): Pitocin Remains (milliunits) @ 16 (Tiffanie Rowe, DELIA) Patient Position/Activity: High Fowlers (Tiffanie Rowe, DELIA) Comfort Measures: Breathing/Relaxation; Family Support (Tiffanie Rowe, DELIA) Communication: RN at Bedside; RN Reviewed Strip (Tiffanie Rowe RN) LaborFlag: Labor (QS system process) Datetime: 05/27/2016 12:16 Stage of : Labor (Tiffanie Rowe RN) Monitor Mode: External (Tiffanie Rowe RN) Frequency (min): 1.5-2 (Tiffanie Rowe RN) Quality: Moderate (Tiffanie Rowe RN) Duration (sec): 55-70 (Tiffanie Rowe RN) Resting Tone (Palpate): Relaxed (Tiffanie Rowe RN) Monitor Mode: External US (Tiffanie Rowe RN) FHR Baseline Rate : 120 (Tiffanie Rowe RN) FHR Baseline Changes: No Baseline Change (Tiffanie Rowe RN) Variability: Moderate 6-25 bpm (Tiffanie Rwoe, DELIA) Accelerations: 15X15 (Tiffanie Rowe RN) Decelerations: None (Tiffanie Rowe RN) Pain Relief Measures: Comfort Measures (Tiffanie Rowe RN) Pain Coping: Breathing Through Contractions (Tiffanie Rowe, DELIA) Pitocin (milliunit): Pitocin Remains (milliunits) @ 16 (Tiffanie Rowe RN) IV/Blood Work: IV Infusing per Order (Tiffanie Rowe, DELIA) Patient Position/Activity: High Fowlers (Tiffanie Rowe, DELIA) Comfort Measures: Breathing/Relaxation; Family Support (Tiffanie Rowe RN) Communication: RN at Bedside; RN Reviewed Strip (Tiffanie Rowe RN) LaborFlag: Labor (QS system process) Datetime: 05/27/2016 12:00 Stage of : Labor (Tiffanie Rowe RN) NBP Sys/Carli/Mean (mmHg): 123 (QS system process) : 91 (QS system process) : 105 (QS system process) Pulse: 87 (QS system process) Respirations: 20 (Tiffanie Rowe RN) Monitor Mode: External (Tiffanie Rowe RN) Frequency (min): 1.5-2.5 (Tiffanie Rowe RN) Quality: Moderate (Tiffanie Rowe RN) Resting Tone (Palpate): Relaxed (Tiffanie Rowe RN) Monitor Mode: External US (Tiffanie Rowe RN) FHR Baseline Rate : 120 (Tiffanie Rowe RN) FHR Baseline Changes: Bradycardia (Tiffanie Rowe RN) Variability: Moderate 6-25 bpm (Tiffanie Rowe RN) Accelerations: Prolonged (Tiffanie Rowe RN) Decelerations: None (Tiffanie Rowe RN) Pain Scale: 2 (Tiffanie Rowe RN) Pain Presence: Intermittent (Tiffanie Rowe RN) Pain Type: Contraction (Tiffanie Rowe RN) Pain Location: Abdomen (Tiffanie Rowe RN) Pain Relief Measures: Comfort Measures (Tiffanie Rowe RN) Pain Coping: Breathing Through Contractions (Tiffanie Rowe RN) Pitocin (milliunit): Pitocin Remains (milliunits) @ 16 (Tiffanie Rowe, RN) IV/Blood Work: IV Infusing per Order (Tiffanie Rowe, DELIA) Patient Position/Activity: High Fowlers (Tiffanie Rowe, DELIA) Comfort Measures: Breathing/Relaxation; Coaching; Family Support (Tiffanie Rowe, DELIA) I/O Interventions: Popsicle (Tiffanie Rowe RN) Communication: RN at Bedside; RN Reviewed Strip (Tiffanie Rowe RN) LaborFlag: Labor (QS system process) Datetime: 05/27/2016 11:50 Stage of : Labor (Tiffanie Rowe RN) Dilatation (cm): 2.5 (Tiffanie Rowe RN) Effacement (%): 80 (Tiffanie Rowe RN) Station: -1 (Tiffanie Rowe RN) Exam by: Surendra BONDS CNM (Tiffanie Rowe, DELIA) Membrane Status: Ruptured (Tiffanie Rowe RN) Membranes Rupture Method: Artificial (Tiffanie Rowe, DELIA) Amniotic Fluid Color: Clear (Tiffanie Rowe RN) Amniotic Fluid Amount: Small (Tiffanie Rowe RN) Amniotic Fluid Odor: None (Tiffanie Rowe, DELIA) Vaginal Bleeding: Scant (Tiffanie Rowe RN) Cervix, Consistency: Moderate (Tiffanie Rowe RN) Cervix, Position: Midposition (Tiffanie Ivonne Roulund, RN) Procedures: Sterile Vag Exam (Tiffanie Rowe RN) Provider Reviewed Strip: Yes (Tiffanie Rowe, RN) Communication: RN at Bedside; RN Reviewed Strip; Provider at Bedside (Tiffanie Rowe RN) Datetime: 05/27/2016 11:46 Stage of : Labor (Tiffanie Rowe RN) Respirations: 20 (Tiffanie Rowe RN) Monitor Mode: External (Tiffanie Rowe RN) Monitor Interventions for UA: Mcneal Adjusted (Tiffanie Rowe, DELIA) Frequency (min): 1.5-2 (Tiffanie Rowe RN) Quality: Mild/Moderate (Tiffanie Rowe RN) Duration (sec): 60-70 (Tiffanie Rowe, RN) Resting Tone (Palpate): Relaxed (Tiffanie Rowe, RN) Monitor Mode: External US (Tiffanie Rowe RN) Monitor Interventions for FHR: Ultrasound Adjusted (Tiffanie Rowe RN) FHR Baseline Rate : 125 (Tiffanie Rowe, RN) FHR Baseline Changes: No Baseline Change (Tiffaine Rowe, RN) Variability: Moderate 6-25 bpm (Tiffanie Rowe, DELIA) Accelerations: 15X15 (Tiffanie Rowe, DELIA) Decelerations: None (Tiffanie Rowe, DELIA) Pain Relief Measures: Comfort Measures (Tiffanie Rowe RN) Pain Coping: Breathing Through Contractions (Tiffanie Rowe RN) Pitocin (milliunit): Pitocin Increased to (milliunits) @ 16 (Tiffanie Rowe, RN) IV/Blood Work: IV Infusing per Order (Tiffanie Rowe, RN) Comfort Measures: Coaching; Rocking Chair; Family Support (Tiffanie Rowe, RN) I/O Interventions: Up to BR (Tiffanie Rowe, RN) Communication: RN at Bedside; RN Reviewed Strip (Tiffanie Rowe RN) LaborFlag: Labor (QS system process) Datetime: 05/27/2016 11:31 Stage of : Antepartum (Tiffanie Rowe RN) NBP Sys/Carli/Mean (mmHg): 132 (QS system process) : 78 (QS system process) : 96 (QS system process) Pulse: 77 (QS system process) Respirations: 18 (Tiffanie Rowe RN) Monitor Mode: External (Tiffanie Rowe RN) Frequency (min): 2-3 (Tiffanie Rowe RN) Quality: Mild (Tiffanie Rowe RN) Duration (sec): 60-90 (Tiffanie Rowe, DELIA) Resting Tone (Palpate): Relaxed (Tiffanie Rowe, RN) Monitor Mode: External US (Tiffanie Rowe RN) FHR Baseline Rate : 135 (Tiffanie Rowe RN) FHR Baseline Changes: No Baseline Change (Tiffanie Rowe RN) Variability: Moderate 6-25 bpm (Tiffanie Rowe RN) Accelerations: 15X15 (Tiffanie Rowe RN) Decelerations: None (Tiffanie Rowe, DELIA) Pain Scale: 1 (Tiffanie Rowe, DELIA) Pain Presence: Intermittent (Tiffanie Rowe RN) Pain Type: Cramping (Tiffanie Rowe, RN) Pain Location: Abdomen (Tiffanie Rowe, DELIA) Pain Relief Measures: Comfort Measures (Tiffanie Rowe, DELIA) Pain Coping: Talking Through Contractions (Tiffanie Rowe RN) Pitocin (milliunit): Pitocin Increased to (milliunits) @ 14 (Tiffanie Rowe, DELIA) IV/Blood Work: IV Infusing per Order (Tiffanie Rowe, DELIA) Comfort Measures: Rocking Chair; Family Support (Tiffanie Rowe, DELIA) Communication: RN at Bedside; RN Reviewed Strip (Tiffanie Rowe RN) LaborFlag: Antepartum (QS system process) Datetime: 05/27/2016 11:16 NBP Sys/Carli/Mean (mmHg): 118 (QS system process) : 80 (QS system process) : 96 (QS system process) Pulse: 85 (QS system process) LaborFlag: Antepartum (QS system process) Datetime: 05/27/2016 11:15 Stage of : Antepartum (Tiffanie Rowe RN) Respirations: 18 (Tiffanie Rowe RN) Monitor Mode: External (Tiffanie Rowe RN) Frequency (min): 1.5-3 (Tiffanie Rowe RN) Quality: Mild (Tiffanie Rowe RN) Duration (sec): 60-120 (Tiffanie oRwe, DELIA) Resting Tone (Palpate): Relaxed (Tiffanie Rowe RN) Monitor Mode: External US (Tiffanie Rowe RN) FHR Baseline Rate : 130 (Tiffanie Rowe RN) FHR Baseline Changes: No Baseline Change (Tiffanie Rowe RN) Variability: Moderate 6-25 bpm (Tiffanie Rowe RN) Accelerations: 15X15 (Tiffanie Rowe, DELIA) Decelerations: None (Tiffanie Rowe, DELIA) Pain Relief Measures: Comfort Measures (Tiffanie Rowe RN) Pain Coping: Talking Through Contractions (Tiffanie Rowe, DELIA) Pitocin (milliunit): Pitocin Increased to (milliunits) @ 12 (Tiffanie Rowe, DELIA) IV/Blood Work: IV Infusing per Order (Tiffanie Rowe, DELIA) Comfort Measures: Rocking Chair; Family Support (iTffanie Rowe, DELIA) Communication: RN at Bedside; RN Reviewed Strip (Tiffanie Rowe RN) LaborFlag: Antepartum (QS system process) Datetime: 05/27/2016 11:02 Stage of : Antepartum (Tiffanie Rowe RN) NBP Sys/Carli/Mean (mmHg): 165 (QS system process) : 87 (QS system process) : 114 (QS system process) Pulse: 129 (QS system process) Respirations: 18 (Tiffanie Rowe RN) Monitor Mode: External (Tiffanie Rowe RN) Frequency (min): 1.5-2 (Tiffanie Rowe RN) Quality: Mild (Tiffanie Rowe RN) Duration (sec): 60-120 (Tiffanie Rowe RN) Resting Tone (Palpate): Relaxed (Tiffanie Rowe RN) Monitor Mode: External US (Tiffanie Rowe RN) FHR Baseline Rate : 135 (Tiffanie Rowe RN) FHR Baseline Changes: No Baseline Change (Tiffanie Rowe RN) Variability: Moderate 6-25 bpm (Tiffanie Rowe, DELIA) Accelerations: 15X15 (Tiffanie Rowe, DELIA) Decelerations: None (Tiffanie Rowe RN) Pain Scale: 1 (Tiffanie Rowe RN) Pain Presence: Intermittent (Tiffanie Rowe RN) Pain Type: Cramping (Tiffanie Rowe RN) Pain Location: Abdomen (Tiffanie Rowe RN) Pain Relief Measures: Comfort Measures (Tiffanie Rowe RN) Pain Coping: Talking Through Contractions (Tiffanie Rowe, DELIA) Nausea/Vomiting: Present (Tiffanie Rowe, DELIA) Pitocin (milliunit): Pitocin Increased to (milliunits) @ 10 (Tiffanie Rowe, DELIA) IV/Blood Work: IV Infusing per Order (Tiffanie Rowe, DLEIA) Comfort Measures: Rocking Chair; Family Support (Tiffanie Rowe RN) Communication: RN at Bedside; RN Reviewed Strip (Tiffanie Rowe RN) LaborFlag: Antepartum (QS system process) Datetime: 05/27/2016 10:45 Stage of : Antepartum (Tiffanie Rowe RN) Monitor Mode: External (Tiffanie Rowe RN) Frequency (min): 2-3 (Tiffanie Rowe RN) Quality: Mild (Tiffanie Rowe RN) Duration (sec): 60-80 (Tiffanie Rowe RN) Resting Tone (Palpate): Relaxed (Tiffanie Rowe RN) Monitor Mode: External US (Tiffanie Rowe RN) FHR Baseline Rate : 130 (Tiffanie Rowe RN) FHR Baseline Changes: No Baseline Change (Tiffanie Rowe RN) Variability: Moderate 6-25 bpm (Tiffanie Rowe, DELIA) Accelerations: 15X15 (Tiffanie Rowe RN) Decelerations: None (Tiffanie Rowe RN) Pain Relief Measures: Comfort Measures (Tiffanie Rowe RN) Pain Coping: Talking Through Contractions (Tiffanie Rowe, DELIA) Pitocin (milliunit): Pitocin Increased to (milliunits) @ 8 (Tiffanie Rowe, DELIA) IV/Blood Work: IV Infusing per Order (Tiffanie Rowe, DELIA) Comfort Measures: Rocking Chair; Family Support (Tiffanie Rowe, DELIA) Communication: RN at Bedside; RN Reviewed Strip (Tiffanie Rowe RN) LaborFlag: Antepartum (QS system process) Datetime: 05/27/2016 10:32 Stage of : Antepartum (Tiffanie Rowe RN) NBP Sys/Carli/Mean (mmHg): 119 (QS system process) : 80 (QS system process) : 94 (QS system process) Pulse: 82 (QS system process) Respirations: 18 (Tiffanie Rowe RN) Monitor Mode: External (Tiffanie Rowe RN) Frequency (min): 1.5-4 (Tiffanie Rowe RN) Quality: Mild (Tiffanie Rowe RN) Duration (sec): 60-130 (Tiffanie Rowe RN) Resting Tone (Palpate): Relaxed (Tiffanie Rowe RN) Monitor Mode: External US (Tiffanei Rowe RN) FHR Baseline Rate : 130 (Tiffanie Rowe RN) FHR Baseline Changes: No Baseline Change (Tiffanie Rowe RN) Variability: Moderate 6-25 bpm (Tiffanie Rowe RN) Accelerations: 15X15 (Tiffanie Rowe RN) Decelerations: None (Tiffanie Rowe RN) Pain Scale: 1 (Tiffanie Rowe RN) Pain Presence: Intermittent (Tiffanie Rowe RN) Pain Type: Cramping (Tiffanie Rowe RN) Pain Location: Abdomen (Tiffanie Rowe RN) Pain Relief Measures: Comfort Measures (Tiffanie Rowe RN) Pain Coping: Talking Through Contractions (Tiffanie Rowe RN) Pitocin (milliunit): Pitocin Increased to (milliunits) @ 6 (Tiffanie Rowe, RN) Comfort Measures: Rocking Chair; Family Support (Tiffanie Rowe, RN) Communication: RN at Bedside; RN Reviewed Strip (Tiffanie Rowe RN) LaborFlag: Antepartum (QS system process) Datetime: 05/27/2016 10:16 Stage of : Antepartum (Tiffanie Rowe RN) Monitor Mode: External (Tiffanie Rowe RN) Monitor Interventions for UA: Mcneal Adjusted (Tiffanie Rowe RN) Frequency (min): IRREG (Tiffanie Rowe, DELIA) Quality: Mild (Tiffanie Rowe, RN) Duration (sec): 60-90 (Tiffanie Rowe, RN) Resting Tone (Palpate): Relaxed (Tiffanie Rowe, DELIA) Monitor Mode: External US (Tiffanie Rowe, DELIA) Monitor Interventions for FHR: Ultrasound Adjusted (Tiffanie Rowe RN) FHR Baseline Rate : 130 (Tiffanie Rowe RN) FHR Baseline Changes: No Baseline Change (Tiffanie Rowe, DELIA) Variability: Moderate 6-25 bpm (Tiffanie Rowe, DELIA) Accelerations: None (Tiffanie Rowe RN) Decelerations: None (Tiffanie Rowe, DELIA) Pain Relief Measures: Comfort Measures (Tiffanie Rowe RN) Pain Coping: Talking Through Contractions (Tiffanie Rowe, DELIA) Pitocin (milliunit): Pitocin Increased to (milliunits) @ 4 (Tiffanie Rowe, RN) IV/Blood Work: IV Infusing per Order (Tiffanie Rowe, RN) Comfort Measures: Rocking Chair; Family Support (Tiffanie Rowe, RN) Communication: RN at Bedside; RN Reviewed Strip (Tiffanie Rowe RN) LaborFlag: Antepartum (QS system process) Datetime: 05/27/2016 10:02 Stage of : Antepartum (Tiffanie Rowe RN) Respirations: 18 (Tiffanie Rowe, DELIA) Monitor Mode: External; Palpation (Tiffanie Rowe, DELIA) Monitor Interventions for UA: Mcneal Adjusted (Tiffanie Rowe, DELIA) Frequency (min): OCC (Tiffanie Rowe, DELIA) Quality: Mild (Tiffanie Rowe, DELIA) Duration (sec): 60-90 (Tiffanie Rowe, RN) Resting Tone (Palpate): Relaxed (Tiffanie Rowe, RN) Monitor Mode: External US (Tiffanie Rowe, RN) Monitor Interventions for FHR: Ultrasound Adjusted (Tiffanie Rowe RN) FHR Baseline Rate : 125 (Tiffanie Rowe, DELIA) FHR Baseline Changes: No Baseline Change (Tiffanie Rowe, DELIA) Variability: Moderate 6-25 bpm (Tiffanie Rowe, RN) Accelerations: 15X15 (Tiffanie Rowe, RN) Decelerations: None (Tiffanie Rowe RN) Pain Scale: 0 (Tiffanie Rowe, RN) Pain Presence: None/Denies (Tiffanie Rowe RN) Pain Type: N/A (Tiffanie Rowe RN) Pain Relief Measures: Comfort Measures (Tiffanie Rowe, DELIA) Pain Coping: Talking Through Contractions (Tiffanie Rowe, DELIA) Pitocin (milliunit): Pitocin Remains (milliunits) @ 2 (Tiffanie Rowe, RN) IV/Blood Work: IV Infusing per Order (Tiffanie Rowe, RN) Patient Position/Activity: Left Tilt; Low Fowlers (Tiffanie Rowe, DELIA) Comfort Measures: Family Support (Tiffanie Rowe RN) I/O Interventions: Up to BR (Tiffanie Rowe RN) Communication: RN at Bedside; RN Reviewed Strip (Tiffanie Rowe RN) LaborFlag: Antepartum (QS system process) Datetime: 05/27/2016 09:55 Stage of : Antepartum (Tiffanie Rowe RN) Pitocin (milliunit): Pitocin Started (milliunits) @ 2 (Tiffanie Rowe, DELIA) Instructional Method: Verbal; Patient Instructed; Family/Support Person Instructed; Verbalized Understanding (Tiffanie Rowe, DELIA) Medications: Pitocin (Tiffanie Rowe RN) Communication: RN at Bedside; RN Reviewed Strip (Tiffanie Rowe RN) Datetime: 05/27/2016 09:30 Stage of : Antepartum (Tiffanie Rowe RN) NBP Sys/Carli/Mean (mmHg): 137 (QS system process) : 96 (QS system process) : 113 (QS system process) Pulse: 101 (QS system process) Respirations: 18 (Tiffanie Rowe RN) Monitor Mode: External (Tiffanie Rowe RN) Frequency (min): OCC (Tiffanie Rowe RN) Quality: Mild (Tiffanie Rowe RN) Duration (sec): 60-90 (Tiffanie Rowe, DELIA) Resting Tone (Palpate): Relaxed (Tiffanie Rowe, DELIA) Monitor Mode: External US (Tiffanie Rowe RN) FHR Baseline Rate : 125 (Tiffanie Rowe RN) FHR Baseline Changes: No Baseline Change (Tiffanie Rowe, DELIA) Variability: Moderate 6-25 bpm (Tiffanie Rowe, RN) Accelerations: 15X15 (Tiffanie Rowe, RN) Decelerations: None (Tiffanie Rowe, DELIA) Pain Relief Measures: Comfort Measures (Tiffanie Rowe, RN) Pain Coping: Talking Through Contractions (Tiffanie Rowe, RN) Patient Position/Activity: Left Tilt; Low Fowlers (Tiffanie Rowe, RN) Comfort Measures: Family Support (Tiffanie Rowe, DELIA) Instructional Method: Verbal; Patient Instructed; Family/Support Person Instructed; Verbalized Understanding (Tiffanie Rowe RN) Plan of Care: Plan of Care Discussed; Labor; Induction (Tiffanie Rowe RN) Unit Routine: Jasper to Room; Call Stern; Bed; Visiting Policy; Waiting Areas; Phone/Cell Phone Use; Photography; Unit Personnel; Consents Signed; Handwashing; Monitoring; IV Pumps; Safety/Fall Risk Prevention; Diet/Nutrition Services; Bathroom Privileges (Tiffanie Rowe, RN) Labor/Induction: Labor Stages; Induction (Tiffanie Rowe, RN) Pain Management: Epidural; Pain Scale/Goals; Comfort Measures (Tiffanie Rowe, RN) Medications: Pitocin (Tiffanie Rowe, RN) Related: Common Discomforts of ; Maternal Physical Changes; Maternal Emotional Changes; Nutrition; Hydration; Activity and Rest (Tiffanie Rowe, DELIA) Communication: RN at Bedside; RN Reviewed Strip (Tiffanie Rowe RN) LaborFlag: Antepartum (QS system process) Datetime: 05/27/2016 09:28 Stage of : Antepartum (Tiffanie Rowe RN) Dilatation (cm): 2.5 (Tiffanie Rowe, RN) Effacement (%): 80 (Tiffanie Rowe, RN) Station: -1 (Tiffanie Rowe, RN) Membrane Status: Intact (Tiffanie Rowe, DELIA) Vaginal Bleeding: None (Tiffanie Rowe, DELIA) Cervix, Consistency: Moderate (Tiffanie Rowe, RN) Cervix, Position: Midposition (Tiffanie Rowe, DELIA) IV/Blood Work: IV Infusing per Order (Tiffanie Rowe, DELIA) Procedures: Sterile Vag Exam (Tiffanie Rowe RN) Provider Reviewed Strip: Yes (Tiffanie Rowe RN) Communication: RN at Bedside; RN Reviewed Strip; Provider at Bedside (Tiffanie Rowe RN) Datetime: 05/27/2016 09:20 IV/Blood Work: IV Started; IV Bolus Started; New IV Bag Hung (Tiffanie Rowe RN) Datetime: 05/27/2016 09:09 IV/Blood Work: Labs Drawn (Tiffanie Rowe, RN) Datetime: 05/27/2016 09:00 Stage of : Antepartum (Tiffanie Rowe RN) NBP Sys/Carli/Mean (mmHg): 112 (QS system process) : 69 (QS system process) : 84 (QS system process) Pulse: 86 (QS system process) Respirations: 18 (Tiffanie Rowe RN) Temperature (F): 98.2 (Tiffanie Rowe RN) Temperature (C): 36.8 (QS system process) Monitor Mode: External; Palpation (Tiffanie Rowe RN) Monitor Interventions for UA: Mcneal Adjusted (Tiffanie Rowe RN) Resting Tone (Palpate): Relaxed (Tiffanie Rowe RN) Monitor Mode: External US (Tiffanie Rowe RN) Monitor Interventions for FHR: Ultrasound Adjusted (Tiffanie Rowe RN) FHR Baseline Rate : 125 (Tiffanie Rowe RN) Pain Scale: 0 (Tiffanie Rowe RN) Pain Presence: None/Denies (Tiffanie Rowe RN) Pain Type: N/A (Tiffanie Rowe RN) Pain Goal: 1 (Tiffanie Rowe RN) Pain Relief Measures: Comfort Measures (Tiffanie Rowe RN) Membrane Status: Intact (Tiffanie Rowe RN) Vaginal Bleeding: None (Tiffanie Rowe RN) Level of Consciousness: Fully Conscious (Tiffanie Rowe RN) DTR's/Clonus: DTRs 1+; No Clonus (Tiffanie Rowe RN) Headache: Denies (Tiffanie Rowe RN) Breath Sounds, Left: Clear and Equal (Tiffanie Rowe RN) Breath Sounds, Right: Clear and Equal (Tiffanie Rowe RN) Nausea/Vomiting: Denies (Tiffanie Rowe RN) RUQ Epigastric Pain: Denies (Tiffanie Rowe RN) Patient Position/Activity: Left Tilt; Low Fowlers (Tiffanie Ivonne Roulund, RN) Comfort Measures: Family Support (Tiffanie Rowe, RN) I/O Interventions: Clear Liquids Given; Up to BR (Tiffanie Rowe, RN) Instructional Method: Verbal; Patient Instructed; Family/Support Person Instructed; Verbalized Understanding (Tiffanie Rowe, DELIA) Plan of Care: Plan of Care Discussed; Labor; Induction (Tiffanie Rowe, RN) Unit Routine: Jasper to Room; Call Stern; Bed; Visiting Policy; Waiting Areas; Phone/Cell Phone Use; Photography; Unit Personnel; Handwashing; Monitoring; IV Pumps; Safety/Fall Risk Prevention; Diet/Nutrition Services; Bathroom Privileges (Tiffanie Rowe, RN) Labor/Induction: Induction (Tiffanie Rowe, RN) Pain Management: Epidural; Pain Scale/Goals; Comfort Measures (Tiffanie Rowe, DELIA) Medications: Pitocin (Tiffanie Rowe, RN) Related: Common Discomforts of ; Maternal Physical Changes; Maternal Emotional Changes; Nutrition; Hydration; Activity and Rest (Tiffanie Rowe, RN) Communication: RN at Bedside; RN Reviewed Strip (Tiffanie Rowe, RN) LaborFlag: Antepartum (QS system process) Datetime: 05/27/2016 02:11 Membranes Ruptured Date/Time: 05/27/2016 11:50 (Tiffanie Rowe, DELIA)
[2016-05-27] MEDS ORDERED: HYDROCODONE/ACETAMINOPHEN 5-325 MG TABLET ONE (20:28)
[2016-05-27] MEDS: HYDROCODONE/ACETAMINOPHEN 5-325 MG TABLET PO PRN (20:29)
--- NOTE | 2016-05-27 23:33 | Admission Physical ---
Datetime Report Generated by CPN: 05/27/2016 23:33 CURRENT ADMISSION Chief Complaint: Scheduled Induction of Labor Indication for Induction: Post Dates Admit Plan: Initiate Labor Induction Protocol ALLERGIES Medication Allergies: Yes Medication Allergies: codeine (06/02/2013) Latex: No Latex Allergies Food Allergies: SHRIMP, VINEET MUSTARD Environmental Allergies: NONE OBSTETRICAL HISTORY EDC: 05/20/2016 00:00 : 2 Para: 0 Term: 0 : 0 SAB: 0 IAB: 1 Ectopic: 0 Livin Cesareans: 0 VBACs: 0 Multiple Births: 0 Gestational Diabetes: No Rh Sensitization: No Incompetent Cervix: No EDGAR: No Infertility: No ART Treatment: No Uterine Anomaly: No IUGR: No Hx Previous C/S: No Macrosomia: No Hx Loss/Stillborn: No PIH: No Hx : No Placenta Previa/Abruption: No Depression/PP Depression: No PTL/PROM: No Post Hemorrhage: No Current Procedures: Ultrasound; NST SEE RECORDS Alcohol: No Marijuana : No Cocaine: No Other Illicit Drugs: No Cigarettes: Never Smoker. 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 Gonorrhea: No Genital Herpes: No Chlamydia: No Tuberculosis: No Syphilis: No Hepatitis: No HIV/AIDS Exposure: No Rash or Viral Illness: No HPV: No PHYSICAL EXAM General: Normal HEENT: Deferred Neurologic: Normal Thyroid: Normal Heart: Normal Lungs: Normal Breast: Deferred Back: Deferred Abdomen: Normal Genitourinary Exam: Normal DTRs: Deferred Pelvic Type: Adequate Vital Signs: Reviewed VAGINAL EXAM Dilatation: 3 Effacement: 80 Station: -1 MEMBRANES Membranes: Intact FETUS A EGA: 41.0 Monitoring: External US FHR- Baseline: 130 Variability: Moderate 6-25bpm Decelerations: None Presentation: Vertex PLANS FOR LABOR AND DELIVERY Labor and Delivery: None Pain Management: Epidural Feeding Preference: Breast Benefit of Breast Feed Discussed: Yes Circumcision: N/A INFORMED CONSENT Assignment: Carola Regalado MD Signature: with User ID: Leslie : with User ID: Leslie
[2016-05-28] MEDS: IBUPROFEN 800 MG TABLET PO SCH ×3 (01:23→17:29)
[2016-05-28] MEDS: HYDROCODONE/ACETAMINOPHEN 5-325 MG TABLET PO PRN ×3 (04:06→20:18)
[2016-05-28] MEDS ORDERED: OXYCODONE HCL IR 5 MG TABLET PO ONE (06:45)
[2016-05-28 06:47] LABS: HEMATOCRIT 31.2 % (36.0-47.0); HEMOGLOBIN 10.6 g/dL (12.0-15.5); HGB HCT DIFFERENCE 0.6; MEAN CORPUSCULAR HEMOGLOBIN 28.6 pg (27.0-33.4); MEAN CORPUSCULAR VOLUME 84 fl (80-97); RED BLOOD COUNT 3.71 10^6/uL (3.72-5.28); RED CELL DISTRIBUTION WIDTH 14.7 % (11.5-14.0); WHITE BLOOD COUNT 15.5 10^3/uL (4.0-10.5)
--- NOTE | 2016-05-28 07:01 | L&D Flow Sheet ---
LD Flowsheet Datetime Report Generated by CPN: 05/28/2016 07:00 Datetime: 05/27/2016 20:24 Stage of : Recovery (Danna Ron, RN) Datetime: 05/27/2016 20:21 NBP Sys/Carli/Mean (mmHg): 128 (QS system process) : 83 (QS system process) : 101 (QS system process) Pulse: 80 (QS system process) Datetime: 05/27/2016 20:00 Stage of : Recovery (Walt Blanco RN) Temperature (F): 98.5 (Walt Blanco RN) Temperature (C): 36.9 (QS system process) Temperature Route: Oral (Walt Blanco RN) Pain Scale: 3 (Walt Blanco RN) Pain Presence: Constant (Walt Blanco RN) Pain Type: Burning; Cramping; Ache (Walt Blanco RN) Pain Location: Back; Perineum (Walt Blanco RN) Datetime: 05/27/2016 19:55 NBP Sys/Carli/Mean (mmHg): 125 (QS system process) : 78 (QS system process) : 97 (QS system process) Pulse: 103 (QS system process) Datetime: 05/27/2016 19:40 NBP Sys/Carli/Mean (mmHg): 126 (QS system process) : 79 (QS system process) : 98 (QS system process) Pulse: 86 (QS system process) Datetime: 05/27/2016 19:30 Level of Consciousness: Fully Conscious (Walt Bella, RN) Headache: Denies (Walt Bella, RN) Breath Sounds, Left: Clear and Equal (Walt Bella, RN) Breath Sounds, Right: Clear and Equal (Walt Bella, RN) Nausea/Vomiting: Present (Annotations: Has some nausea present ) (Walt Bella, RN) Pitocin (milliunit): Pitocin Remains (milliunits) @ ([facility] Bella, RN) Datetime: 05/27/2016 19:25 NBP Sys/Carli/Mean (mmHg): 125 (QS system process) : 80 (QS system process) : 96 (QS system process) Pulse: 96 (QS system process) Datetime: 05/27/2016 19:15 Stage of : Recovery (Walt Blanco RN) Pain Scale: 2 (Walt Blanco RN) Pain Presence: Constant (Walt Blanco RN) Pain Type: Burning (Walt Blanco RN) Pain Location: Perineum (Walt Blanco RN) Pain Goal: 0 (Walt Blanco RN) Pain Relief Measures: Pain Medication Given; Comfort Measures (Annotations: Ibuprofen 800mg) (Walt Blanco RN) Datetime: 05/27/2016 19:10 NBP Sys/Carli/Mean (mmHg): 127 (QS system process) : 77 (QS system process) : 98 (QS system process) Pulse: 86 (QS system process)
[2016-05-28] MEDS: SENNOSIDES/DOCUSATE 8.6-50 MG 1 EACH TABLET PO SCH (09:45)
[2016-05-28] MEDS: PRENATAL VITAMIN W-O CA NO5/FE FUMARATE/FA CAPSULE PO SCH (09:45)
[2016-05-28] MEDS: DOCUSATE SODIUM 100 MG CAPSULE PO SCH ×2 (09:46→17:30)
[2016-05-28] MEDS: FERROUS SULFATE 325 MG TABLET PO SCH ×2 (09:46→17:30)
--- NOTE | 2016-05-28 11:16 | PDOC PROGRESS REPORT ---
Subjective-OB Subjective: Post Delivery Day: 25 year old. Denies any needs at this time. Pt doing well, ambulatory, reports light bleeding, regular diet and voiding well. No complaints. Physical Exam (OB) Vital Signs: Temp Pulse Resp BP Pulse Ox 97.5 F 69 16 126/87 H 100 05/28/16 08:10 05/28/16 08:10 05/28/16 08:10 05/28/16 08:10 05/28/16 08:10 Intake & Output 05/27/16 05/28/16 05/29/16 06:59 06:59 06:59 Weight 82.15 kg - Lochia Lochia Amount: Scant < 10 ml Lochia Color: Rubra/Red - Abdomen Description: Tender, Soft Hernia Present: No Fundal Description: Firm Fundal Height: u/u - u/2 Objective-Diagnostic Laboratory: 05/28/16 06:32 05/28/16 06:32 WBC 15.5 H RBC 3.71 L Hgb 10.6 L Hct 31.2 L MCV 84 MCH 28.6 MCHC 34.0 RDW 14.7 H Plt Count 175 Assessment and Plan(PN) - Assessment and Plan (1) Vaginal delivery Is this a current diagnosis for this admission?: Yes - Time Spent with Patient Time with patient: Less than 15 minutes Medications reviewed and adjusted accordingly: Yes - Disposition Anticipated Discharge: Home Within: within 24 hours
--- NOTE | 2016-05-28 11:19 | Delivery Summary ---
Del Sum A-C Datetime Report Generated by CPN: 05/28/2016 11:19 ADMISSION DATA Chief Complaint: Scheduled Induction of Labor Indication for Induction: Post Dates Admission Impression: No Active Labor DELIVERY PERSONNEL Delivery Doctor:: Carola Regalado MD Labor and Delivery Nurse:: Tiffanie Rowe RN Labor and Delivery Nurse:: KHLOE Finney Nursery Nurse:: ANAIS Fraire @ 12 MIN OLD Rn Child/SUPPLEMENTAL NURSE: Keeley Lai, ST MATERNAL INFORMATION Delivery Anesthesia: Epidural Medications After Delivery: Pitocin Bolus-Please Comment; Pitocin Drip 20 Units/1000ml NSS Estimated Blood Loss (ml): 300 Maternal Complications: None Provider Comments: over intact perineum, no lacs. live male ap 89. spontaneous intact placenta 3vc. no complications LABOR SUMMARY EDC: 05/20/2016 00:00 No. Babies in Womb: 1 Attempted: No Labor Anesthesia: Epidural LABOR INFORMATION Reason for Induction: Post Dates Onset of Labor: 05/27/2016 12:00 Complete Dilatation: 05/27/2016 16:30 Oxytocin: Induction Group B Beta Strep: negative Antibiotics # of Doses: 0 Steroids Given: None Reason Steroids Not Administered: Not Applicable MEMBRANES Membranes Rupture Method: Artificial Rupture of Membranes: 05/27/2016 11:50 Length of Rupture (hr): 6.38 Amniotic Fluid Color: Clear Amniotic Fluid Amount: Small Amniotic Fluid Odor: None STAGES OF LABOR Stage 1 hr: 4 Stage 1 min: 30 Stage 2 hr: 1 Stage 2 min: 43 Stage 3 hr: 0 Stage 3 min: 6 Total Time in Labor hr: 6 Total Time in Labor min: 19 VAGINAL DELIVERY Episiotomy: None Laceration Extension: N/A Laceration Type: None Laceration Repair: Not Applicable Sponge Count Correct: N/A Sharps Count Correct: N/A CSECTION DELIVERY Primary Indication: N/A Secondary Indication: N/A CSection Incidence: N/A Labor: N/A Elective: N/A BABY A INFORMATION Delivery Date/Time: 05/27/2016 18:13 Method of Delivery: Vaginal Born in Route : No : N/A Forceps: N/A Vacuum Extraction: N/A Shoulder Dystocia : No PRESENTATION/POSITION BABY A Presentation: Cephalic Cephalic Presentation: Vertex Vertex Position: Left Occipital Anterior Breech Presentation: N/A PLACENTA INFORMATION BABY A Placenta Delivery Time : 05/27/2016 18:19 Placenta Method of Delivery: Spontaneous Placenta Status: Delivered SCORES BABY A Heart Rate 1 min: >100 bpm Resp Effort 1 min: Good Cry Reflex Irritability 1 min: Cough or Sneeze or Pulls Away Muscle Tone 1 min: Active Motion Color 1 min: Blue/Pale Resuscitation Effort 1 min: Tactile Stimulation SCORE 1 MIN: 8 Heart Rate 5 min: >100 bpm Resp Effort 5 min: Good Cry Reflex Irritability 5 min: Cough or Sneeze or Pulls Away Muscle Tone 5 min: Active Motion Color 5 min: Body [place], Extremities Blue Resuscitation Effort 5 min: Tactile Stimulation SCORE 5 MIN: 9 INFORMATION BABY A Gestational Age at Delivery: 41.0 Gestational Status: Late Term- 41- 41.6 Weeks Infant Outcome : Liveborn Infant Condition : Stable Infant Sex: Male IDENTIFICATION BABY A Verification Date/Time: 05/27/2016 18:25 ID Band Number: [id number] Mother's Name Verified: Yes RN Verifying Infant: r david, rn Additional Verifying Personnel: d chayito, u/s/ offset proof press operator WEIGHT/LENGTH BABY A Infant Birthweight (gm): 3621 Infant Weight (lb): 8 Infant Weight (oz): 0 Infant Length (in): 19.50 Length (cm): 49.53 CORD INFORMATION BABY A No. Cord Vessels: 3 Nuchal Cord : N/A Cord Blood Taken: Yes-For Storage (Mom's Blood type +) Suction: Mouth; Nose ASSESSMENT BABY A Infant Complications: Multiple Variable Decels Physical Findings at Delivery: Within Normal Limits Respirations: Appears Normal Skin to Skin: Yes Skin to Skin Time (min): 90 Home Energy Consultant/ALS Called : No Infant Care By: KHLOE ROMAN/ Kathleen CARRILLO RN Transferred To: Remains with Mother BABY B INFORMATION : N/A SIGNATURES Signature: with User ID: [email or web address] : I was personally available for consultation and serving as supervising physician for the MLP.
--- NOTE | 2016-05-28 18:00 | L&D Current Admission ---
Current Admit Datetime Report Generated by CPN: 05/28/2016 18:00 ADMISSION INFORMATION Current Admit Date/Time: 05/27/2016 08:34 (05/27/2016 08:34:Tiffanie Rowe RN) Reason for Admission: Induction of Labor (05/27/2016 08:34:Tiffanie Rowe RN) Chief Complaint: Scheduled Induction of Labor (05/27/2016 09:00:Tiffanie Rowe RN) EGA per Dates: 41.0 (05/27/2016 08:34:QS system process) Method of Arrival: Ambulatory (05/27/2016 08:34:Tiffanie Rowe RN) Reason for Induction: Postterm (05/27/2016 08:34:Tiffanie Rowe RN) Records Available: Yes (05/27/2016 08:34:Tiffanie Rowe RN) General Admission Information: Reviewed (05/27/2016 08:34:Tiffanie Rowe RN) BELONGINGS/ADVANCED DIRECTIVES Valuables/Personal Effects: Cell Phone (05/27/2016 08:34:Tiffanie Rowe RN) Other Belongings: SEE VALUABLES CONSENT (05/27/2016 08:34:Tiffanie Rowe RN) Disposition of Belongings: Kept with Patient (05/27/2016 08:34:Tiffanie Rowe RN) Advance Direct for Healthcare: No, and Wants No Information (05/27/2016 08:34:Tiffanie Rowe RN) Indicate Intent if Not With Pt: RECEIVED IN REGISTRATION (05/27/2016 08:34:Tiffanie Rowe RN) Durable Power of Portfolio Analyst: No (05/27/2016 08:34:Tiffanie Rowe RN) Living Will: No (05/27/2016 08:34:Tiffanie Rowe RN) Organ Donor: Undecided (05/27/2016 08:34:Tiffanie Rowe RN) Pt Rights Information Given: Yes (05/27/2016 08:34:Tiffanie Rowe RN) Pt Understands Pt Rights: Yes (05/27/2016 08:34:Tiffanie Rowe RN) LEARNING ASSESSMENT Knowledge Level: Understands L_D Process; Understands Care Activities; Understands Diagnosis (05/27/2016 08:34:Tiffanie Rowe RN) Barriers to Learning: None (05/27/2016 08:34:Tiffanie Rowe RN) Learning Readiness: Motivated (05/27/2016 08:34:Tiffanie Rowe RN) Learns Best By: 1 to 1 Instruction; Reading; Videos; Demonstration (05/27/2016 08:34:Tiffanie Rowe RN) Learning Needs: Labor and Delivery Process; Pain Management; Symptoms to Report; Treatment Plan; Medication; Diagnosis; Nutrition; Equipment; Infant Care; Community Resources (05/27/2016 08:34:Tiffanie Rowe RN) DOMESTIC VIOLANCE SCREENING Dom Viol Threatened/Hurt: No (05/27/2016 08:34:Tiffanie Rowe RN) Hx of Abuse/Neglect past 2yrs: No (05/27/2016 08:34:Tiffanie Rowe RN) Feel Unsafe Going Home: No (05/27/2016 08:34:Tiffanie Rowe RN) Addt'l Observ Indicating Abuse: No (05/27/2016 08:34:Tiffanie Rowe RN) Reason Unable to Complete Screen: N/A, Screen Completed (05/27/2016 08:34:Tiffanie Rowe RN) Considered Personal Harm/Suicide: No (05/27/2016 08:34:Tiffanie Rowe RN) NUTRITIONAL/FUNCTIONAL SCREENING Problem with Appetite >5 Days: No (05/27/2016 08:34:Tiffanie Rowe RN) Chew/Swallow Difficulties: No (05/27/2016 08:34:Tiffanie Rowe RN) Inappropriate Wt Gain/Loss: No (05/27/2016 08:34:Tiffanie Rowe RN) Presence Skin Breakdown/Ulcer: No (05/27/2016 08:34:Tiffanie Rowe RN) Special Diet: No (05/27/2016 08:34:Tiffanie Rowe RN) Pt Requests Motor Vehicle Licence Examiner Visit: No (05/27/2016 08:34:Tiffanie Rowe RN) Hx of Any of the Following?: N/A (05/27/2016 08:34:Tiffanie Rowe RN) New Diagnosis of: N/A (05/27/2016 08:34:Tiffanie Rowe RN) Requires Assist w/Ambulation: No (05/27/2016 08:34:Tiffanie Rowe RN) Uses Assist Device to Ambulate: No (05/27/2016 08:34:Tiffanie Rowe RN) Pt Requires Help w/ADL's: No (05/27/2016 08:34:Tiffanie Rowe RN)
--- NOTE | 2016-05-28 18:00 | L&D General Admission ---
General Admit Datetime Report Generated by CPN: 05/28/2016 18:00 INFORMATION Patient Age: 25 (04/06/2016 15:18:QS system process) EDC: 05/20/2016 00:00 (05/27/2016 02:11:Rachelle Fernandes RN) : 2 (05/27/2016 02:11:Rachelle Fernandes RN) Para: 0 (05/27/2016 02:11:Rachelle Fernandes RN) Term: 0 (05/27/2016 02:11:Rachelle Fernandes RN) : 0 (05/27/2016 02:11:Rachelle Fernandes RN) Spontaneous Abortions: 0 (05/27/2016 02:11:Rachelle Fernandes RN) Induced Abortions: 1 (05/27/2016 02:11:Rachelle Fernandes RN) Livin (05/27/2016 02:11:Rachelle Fernandes RN) Cesareans: 0 (05/27/2016 02:11:Rachelle Fernandes RN) VBACs: 0 (05/27/2016 02:11:Rachelle Fernandes RN) Ectopic: 0 (05/27/2016 02:11:Rachelle Fernandes RN) Multiple Births: 0 (05/27/2016 02:11:Rachelle Fernandes RN) Baby, Number in Womb: 1 (05/27/2016 02:11:Rachelle Fernandes RN) CARE Primary Grain Operations Manager: [facility] (05/27/2016 02:11:Rachelle Fernandes RN) Month of 1st Visit: November 2015 (05/27/2016 02:11:Rachelle Fernandes RN) Adequate Care: Yes (05/27/2016 02:11:Tiffanie Rowe RN) Height (in): 67 (05/27/2016 23:32:QS system process) ALLERGIES Medication Allergy: Yes (05/27/2016 02:11:Tiffanie Rowe RN) Medication Allergies: codeine (06/02/2013) (04/06/2016 15:18:QS system process) Latex Allergy: No Latex Allergies (05/27/2016 02:11:Tiffanie Rowe RN) Food Allergies: SHRIMP, VINEET MUSTARD (05/27/2016 02:11:Tiffanie Rowe RN) Environmental Allergies: NONE (05/27/2016 02:11:Tiffanie Rowe RN) COMMUNICATION Primary Language: Malian (05/27/2016 02:11:Tiffanie Rowe RN) Medical Tx Preferred Language: Malian (05/27/2016 02:11:Tiffanie Rowe RN) Communication Barrier(s): None (05/27/2016 02:11:Tiffanie Rowe RN) DEMOGRAPHICS Address: [address] [place], [place] [address] [address] (04/06/2016 15:18:QS system process) Zipcode: [address] (04/06/2016 15:18:QS system process) Home (04/06/2016 15:18:QS system process) SSN: [id number] (04/06/2016 15:18:QS system process) Next of Kin Name: TRAVIS MCKEON (04/06/2016 15:18:QS system process) Next of Kin (04/06/2016 15:18:QS system process) Next of Kin Relationship: MO (04/06/2016 15:18:QS system process) Date of : 1990 (04/06/2016 15:18:QS system process) Marital Status: Single (04/06/2016 15:18:QS system process) Sex: Female (04/06/2016 15:18:QS system process) Race: (04/06/2016 15:18:QS system process) Ethnicity: Non- or (04/06/2016 15:18:QS system process) Yazidi: None (04/06/2016 15:18:QS system process) DRUG AND ALCOHOL USE Alcohol: No (05/27/2016 02:11:Tiffanie Rowe RN) Cigarettes: Never Smoker. [id number] (05/27/2016 02:11:Tiffanie Rowe RN) Marijuana: No (05/27/2016 02:11:Tiffanie Rowe RN) Cocaine: No (05/27/2016 02:11:Tiffanie Rowe RN) Other Illicit Drugs: No (05/27/2016 02:11:Tiffanie Rowe RN) VACCINE HISTORY Influenza Vaccine: No (05/27/2016 02:11:Tiffanie Rowe RN) Pneumococcal Vaccine: No (05/27/2016 02:11:Tiffanie Rowe RN) Tetanus Vaccine: Uncertain (05/27/2016 02:11:Tiffanie Rowe RN) Tdap Vaccine: No (05/27/2016 02:11:Tiffanie Rowe RN) Hepatitis B Vaccine: Yes (05/27/2016 02:11:Tiffanie Rowe RN) Pricing Strategist: [facility] (05/27/2016 02:11:Tiffanie Rowe RN) Feeding Preference: Breast (05/27/2016 02:11:Tiffanie Rowe RN) Benefit of Breast Feed Discussed: Yes (05/27/2016 02:11:Tiffanie Rowe RN) Circumcision: N/A (05/27/2016 02:11:Tiffanie Rowe RN) Classes Attended: Yes (05/27/2016 02:11:Tiffanie Rowe RN) Tubal Ligation: No (05/27/2016 02:11:Tiffanie Rowe RN) Tubal Authorization Signed: N/A (05/27/2016 02:11:Tiffanie Rowe RN) Consent: N/A (05/27/2016 02:11:Tiffanie Rowe RN) Consent Signed: N/A (05/27/2016 02:11:Tiffanie Rowe RN) Pain Management Plans: Epidural (05/27/2016 02:11:Tiffanie Rowe RN) Plans for Labor and Delivery: None (05/27/2016 02:11:Tiffanie Rowe RN) Support Person: LAURA (05/27/2016 02:11:Tiffanie Rowe RN) Support Person Relationship: Significant Other (05/27/2016 02:11:Tiffanie Rowe RN) Cultural/Spritual Practice: No (05/27/2016 02:11:Tiffanie Rowe RN) Spir/Cult Dietary Needs: No (05/27/2016 02:11:Tiffanie Rowe RN) LIVING SITUATION/DISCHARGE PLAN Living Arrangements: House (05/27/2016 02:11:Tiffanie Rowe RN) Adequate Access to:: Electric; Heat; Refrigeration; Plumbing/Running water; Phone; Transportation (05/27/2016 02:11:Tiffanie Rowe RN) WIC Program: Yes (05/27/2016 02:11:Tiffanie Rowe RN) Discharge Representative Phlebotomy Services Person: LAURA (05/27/2016 02:11:Tiffanie Rowe RN) Person to Help after Discharge: RIGO (05/27/2016 02:11:Tiffanie Rowe RN) Currently Using Commun Resources: Yes (05/27/2016 02:11:Tiffanie Rowe RN) Specify Current Resource Used: MEDICAID, FOOD STAMPS (05/27/2016 02:11:Tiffanie Rowe RN) Outside Agency/Profile Shaper Operator: No (05/27/2016 02:11:Tiffanie Rowe RN) Car Seat for Discharge: Yes (05/27/2016 02:11:Tiffanie Rowe RN) Adoption Requested: No (05/27/2016 02:11:Tiffanie Rowe RN) Pt Contact w/infant Post : N/A (05/27/2016 02:11:Tiffanie Rowe RN) LABS Blood Type: A Positive (05/27/2016 02:11:Rachelle Fernandes RN) Antibody Screen: negative (05/27/2016 02:11:Rachelle Fernandes RN) Hemoglobin: 10.6 L (05/28/2016 06:32:QS system process) Hematocrit: 31.2 L (05/28/2016 06:32:QS system process) MCV: 84 (05/28/2016 06:32:QS system process) Group Beta Strep: negative (05/27/2016 02:11:Rachelle Fernandes RN) Gonorrhea: Negative (05/27/2016 02:11:Rachelle Fernandes RN) Chlamydia: Negative (05/27/2016 02:11:Rachelle Fernandes RN) RPR/VDRL: Nonreactive (05/27/2016 02:11:Rachelle Fernandes RN) HIV Exposure Test: Negative (05/27/2016 02:11:Tiffanie Rowe RN) HIV Results: non-reactive (05/27/2016 02:11:Rachelle Fernandes RN) Hepatitis B: Negative (05/27/2016 02:11:Rachelle Fernandes RN) Rubella: Immune (05/27/2016 02:11:Rachelle Fernandes RN) Pap Test: Normal (05/27/2016 02:11:Tiffanie Rowe RN) OB/PREVIOUS HISTORY Current Procedures: Ultrasound; NST (05/27/2016 02:11:Tiffanie Rowe RN) History of Previous : No (05/27/2016 02:11:Tiffanie Rowe RN) History of Gestational Diabetes: No (05/27/2016 02:11:Tiffanie Rowe RN) History of PIH: No (05/27/2016 02:11:Tiffanie Rowe RN) History of Incompetent Cervix: No (05/27/2016 02:11:Tiffanie Rowe RN) History of Placenta Previa/Abrup: No (05/27/2016 02:11:Tiffanie Rowe RN) History of Macrosomia: No (05/27/2016 02:11:Tiffanie Rowe RN) History of IUGR: No (05/27/2016 02:11:Tiffanie Rowe RN) History of Hemorrhage: No (05/27/2016 02:11:Tiffanie Rowe RN) History of Loss/Stillborn: No (05/27/2016 02:11:Tiffanie Rowe RN) History of : No (05/27/2016 02:11:Tiffanie Rowe RN) History of D (Rh) Sensitization: No (05/27/2016 02:11:Tiffanie Rowe RN) History Recurrent Loss/Stillborn: No (05/27/2016 02:11:Tiffanie Rowe RN) History Depression/PP Depression: No (05/27/2016 02:11:Tiffanie Rowe RN) History of Uterine Anomaly/EDGAR: No (05/27/2016 02:11:Tiffanie Rowe RN) History of Infertility: No (05/27/2016 02:11:Tiffanie Rowe RN) History of ART Treatment: No (05/27/2016 02:11:Tiffanie Rowe RN) History of EDGAR: No (05/27/2016 02:11:Tiffanie Rowe RN) MEDICAL HISTORY Med Hx Diabetes: No (05/27/2016 02:11:Tiffanie Rowe RN) Med Hx Hypertension: No (05/27/2016 02:11:Tiffanie Rowe RN) Med Hx Heart Disease: No (05/27/2016 02:11:Tiffanie Rowe RN) Med Hx Autoimmune Disorder: No (05/27/2016 02:11:Tiffanie Rowe RN) Med Hx Kidney Disease/UTI: No (05/27/2016 02:11:Tiffanie Rowe RN) Med Hx Neurologic/Epilepsy: No (05/27/2016 02:11:Tiffanie Ivonne Roulund, RN) Med Hx Psychiatric Disorders: No (05/27/2016 02:11:Tiffanie Rowe RN) Med Hx Hepatitis/Liver Disease: No (05/27/2016 02:11:Tiffanie Rowe RN) Med Hx Varicosities/Phlebitis: No (05/27/2016 02:11:Tiffanie Rowe RN) Med Hx Thyroid Dysfunction: No (05/27/2016 02:11:Tiffanie Rowe RN) Med Hx Trauma/Violence: No (05/27/2016 02:11:Tiffanie Rowe RN) Med Hx Blood Transfusion: No (05/27/2016 02:11:Tiffanie Rowe RN) Med Hx Pulmonary (Asthma,TB): Yes (05/27/2016 02:11:Rachelle Fernandes RN) Med Hx Breast: No (05/27/2016 02:11:Tiffanie Rowe RN) Med Hx CORPORATE TECHNICAL RECRUITER Surgery: No (05/27/2016 02:11:Tiffanie Rowe RN) Med Hx Hospitalization/Surgery: No (05/27/2016 02:11:Tiffanie Rowe RN) Med Hx Anesthetic Complications: No (05/27/2016 02:11:Tiffanie Rowe RN) Med Hx Abnormal Pap Smear: No (05/27/2016 02:11:Tiffanie Rowe RN) Other Medical Diseases: No (05/27/2016 02:11:Tiffanie Rowe RN) Med Hx Significant Family Hx: No (05/27/2016 02:11:Tiffanie Rowe RN) Details of Med/Surg Hx: asthma- LAST EPISODE- 22 Y/O- RESCUE INHALER (05/27/2016 02:11:Tiffanie Rowe RN) INFECTIOUS HISTORY Inf Hx Gonorrhea: No (05/27/2016 02:11:Tiffanie Rowe RN) Inf Hx Chlamydia: No (05/27/2016 02:11:Tiffanie Rowe RN) Inf Hx Syphilis: No (05/27/2016 02:11:Tiffanie Rowe RN) Inf Hx HIV/AIDS: No (05/27/2016 02:11:Tiffanie Rowe RN) Inf Hx Human Papilloma Virus: No (05/27/2016 02:11:Tiffanie Rowe RN) Inf Hx Pt/Partner Genital Herpes: No (05/27/2016 02:11:Tiffanie Rowe RN) Inf Hx Tuberculosis/Exposure: No (05/27/2016 02:11:Tiffanie Rowe RN) Inf Hx Hepatitis B,C: No (05/27/2016 02:11:Tiffanie Rowe RN) Inf Hx Rash or Viral Illness: No (05/27/2016 02:11:Tiffanie Rowe RN) GENETIC HISTORY Gen Hx Age >=35 at CAROL: No (05/27/2016 02:11:Tiffanie Rowe RN) Gen Hx Thalassemia: No (05/27/2016 02:11:Tiffanie Rowe RN) Gen Hx Congenital Heart Defect: No (05/27/2016 02:11:Tiffanie Rowe RN) Gen Hx Neural Tube Defect: No (05/27/2016 02:11:Tiffanie Rowe RN) Gen Hx Down's Syndrome: No (05/27/2016 02:11:Tiffanie Rowe RN) Gen Hx Mohit-Sachs: No (05/27/2016 02:11:Tiffanie Rowe RN) Gen Hx Paul: No (05/27/2016 02:11:Tiffanie Rowe RN) Gen Hx Familial Dysautonomia: No (05/27/2016 02:11:Tiffanie Rowe RN) Gen Hx Sickle Cell Disease/Trait: No (05/27/2016 02:11:Tiffanie Rowe RN) Gen Hx Hemophilia/Blood Disorder: No (05/27/2016 02:11:Tiffanie Rowe RN) Gen Hx Muscular Dystrophy: No (05/27/2016 02:11:Tiffanie Rowe RN) Gen Hx Cystic Fibrosis: No (05/27/2016 02:11:Tiffanie Rowe RN) Gen Hx [place] Chorea: No (05/27/2016 02:11:Tiffanie Rowe RN) Gen Hx Mental Retardation/Autism: No (05/27/2016 02:11:Tiffanie Rowe RN) Gen Hx Tested for Fragile X: No (05/27/2016 02:11:Tiffanie Rowe RN) Gen Hx Other Inher/Chromosomal: No (05/27/2016 02:11:Tiffanie Rowe RN) Gen Hx Maternal Metabolic DO: No (05/27/2016 02:11:Tiffanie Rowe RN) Gen Hx Pt Father or FOB Defect: No (05/27/2016 02:11:Tiffanie Rowe RN) Gen Hx Other Genetic History: No (05/27/2016 02:11:Tiffanie Rowe RN) Gen Hx Drugs/Meds since LMP: No (05/27/2016 02:11:Tiffanie Rowe RN) Details of Genetic History: FOB SISTER BORN WITH CONDITION OF SWELLING ON BRAIN (05/27/2016 02:11:Tiffanie Rowe RN)
--- NOTE | 2016-05-28 18:15 | L&D Care Plan ---
LD CARE PLANS Datetime Report Generated by CPN: 05/28/2016 18:15 Datetime: 05/27/2016 08:07 Pain State: Actual (Tiffanie Rowe RN) Related To: Labor and Delivery Process; Complication(s) of ; Treatment and Procedures; Post (Tiffanie Rowe RN) Goal(s): Patients Pain will be Assessed and Managed; Patient will Verbalize Adequate Relief of Pain or the Ability to [place] with Current Pain (Tiffanie Rowe RN) Interventions: Assess Pain Severity on Scale of 0 (None) to 5 (Severe); Assess Type, Location and Intensity of Pain Each Time Client Reports Discomfort and Notify Provider if Unusal Pain Develops; Encourage Proper Breathing and Relaxation Techniques; Offer Alternatives Such as Repositioning, Calm Environment, Massages, Diversional Activities, Ice Pack, Splinting, and Ambulation; Administer Analgesics as Ordered; Assist with Epidural Placement as Appropriate; Evaluate Therapeutic Effectiveness of Medication and Treatments (Tiffanie Rowe RN) Outcome: Patient will Report Absence or Relief of Pain Consistent with Established Pain Goal (Tiffanie Rowe RN) Status: Ongoing (Tiffanie Rowe RN) Outcome: Patient will have a Decrease in Signs and Symptoms of Discomfort (Tiffanie Rowe RN) Status: Ongoing (Tiffanie Rowe RN) Outcome: Pain will be Controlled During Procedures (Tiffanie Rowe RN) Status: Ongoing (Tiffanie Rowe RN) Anxiety State: Risk For (Tiffanie Rowe RN) Related To: Labor and Delivery Process; Perceived or Actual Threat to ; Fear of Unknown; Situational Crisis; Significant Life Event (Tiffanie Rowe RN) Goal(s): Patient will have Decreased Anxiety and be able to Function at Acceptable Levels (Tiffanie Rowe RN) Interventions: Assess Verbal and Nonverbal Behavioral Indicators of Anxiety; Assist Patient to Identify and Verbalize Symptoms of Anxiety; Identify and Demonstrate Techniques to Control Anxiety; Assist Patient with Coping Mechanisms to Manage Anxiety; Provide Theraputic Touch for the Patient; Explain to Patient, Using a Calm Reassuring Approach and Nonmedical Terms, All Activities, Procedures, and Concerns; Instruct Patient and Family about Post Discharge Care, Limitations, Symptoms to Report and Resources Available (Tiffanie Rowe RN) Outcome: Patient will Identify, Verbalize and Demonstrate Techniques to Control Anxiety (Tiffanie Rowe RN) Status: Ongoing (Tiffanie Rowe RN) Outcome: Patient's Posture, Facial Expressions, Gestures and Activity Level will Reflect Decreased Anxiety (Tiffanie Rowe RN) Status: Ongoing (Tiffanie Rowe RN) Outcome: Patient will Verbalize a Sense of Control and/or Acceptance of the Situation (Tiffanie Rowe RN) Status: Ongoing (Tiffanie Rowe RN) Outcome: Patient will Identify and Utilize Support Person (Tiffanie Rowe RN) Status: Ongoing (Tiffanie Rowe RN) Knowledge Deficit State: Risk For (Tiffanie Rowe RN) Related To: Labor and Delivery Process; Treatment and Procedures; Impending Alterations in Family Dynamics (Tiffanie Rowe RN) Goal(s): Patient will Accurately Verbalize Understanding of Plan of Care and Treatment; Patient and Family will Accurately Verbalize Understanding of the Disease Process (Tiffanie Rowe, DELIA) Interventions: Assess Motivation and Willingness of Patient/Family to Learn; Assess Preferred Learning Mode: One to One Instruction, Reading, Videos, Group Discussion or Demonstration; Assess Barriers to Learning: Pain, Emotional State, Language Barrier, Cognitive Impairment, Visual or Hearing Deficits; Assess Patient and Family Knowledge of Disease Process, Medications and Treatment; Discuss Therapy and/or Treatment Options, Describe Rationale Behind Management, Therapy and Treatment Recommendations; Instruct Patient and Family on Signs and Symptoms to Report; Instruct Patient and Family on Medication Effects and Side Effects; Provide Appropriate and Timely Education Using Multiple Techniques; Provide Patient and Family with Support Group Information and Resources; Give Clear and Thorough Explanations and Demonstrations (Tiffanie Rowe RN) Outcome: Patient and Family will Verbalize Understanding of Condition, Treatment and Signs and Symptoms to Report (Tiffanie Rowe RN) Status: Ongoing (Tiffanie Rowe RN) Outcome: Patient will Identify Perceived Learning Needs and Express Motivation to Learn (Tiffanie Rowe RN) Status: Ongoing (Tiffanie Rowe RN) Outcome: Patient will Verbalize Understanding of Desired Content, and/or Performs Desired Skill Prior to Discharge (Tiffanie Rowe RN) Status: Ongoing (Tiffanie Rowe RN) Infection State: Risk For (Tiffanie Rowe RN) Related To: Prolonged Labor or Induction; Premature/Prolonged Rupture of Membranes; Invasive Procedures (Tiffanie Rowe RN) Goal(s): The Patient will be Free of Infection, Vital Signs Stable and Lab Work within Normal Parameters (Tiffanie Rowe RN) Interventions: Instruct and Reinforce Proper Handwashing, Hygiene, and Care Techniques to Patient and Family; Monitor Vital Signs; Monitor Patient for the Following Signs of Infection: Fever, Abdominal Tenderness, Unusual Discharge; Monitor Aminiotic Fluid, Urine and Lochia for Color and Odor; Observe Wounds, Incisions and Invasive Line Sites for Redness, Drainage and Edema; Assess IV Sites per Hospital Policy; Monitor Lab and Test Results and Notify Provider of Abnormal Findings; Assess Nutritional Status and Promote Good Nutrition (Tiffanie Rowe RN) Outcome: Patient will Remain Free of Infection (Tiffanie Rowe RN) Status: Ongoing (Tiffanie Rowe RN) Outcome: Infection will be Recognized Early to Allow for Prompt Treatment (Tiffanie Rowe RN) Status: Ongoing (Tiffanie Rowe RN) Outcome: Patient will have Vital Signs Within Expected Range (Tiffanie Rowe RN) Status: Ongoing (Tiffanie Rowe RN) Fluid Volume State: Risk For (Tiffanie Rowe RN) Related To: Prolonged Labor or Induction; Hemorrhage; Anesthesia (Tiffanie Rowe RN) Goal(s): Patient will Achieve and Maintain a Balanced Fluid Volume Status; Hemodynamically Stable (Tiffanie Rowe RN) Interventions: Monitor Vital Signs; Auscultate Breath Sounds; Monitor Patient for Skin Turgor, Mucous Membranes, Dry Skin, Weakness, Headaches and Confusion; Provide Oral Fluids as Ordered; Initiate and Maintain Intravenous Fluids as Ordered; Monitor Intake and Output as Indicated Per Patient Status; Accurately Measure Blood Loss; Monitor Lab and Test Results as Obtained and Notify Provider of Abnormal Findings; Monitor Patient's Weight (Tiffanie Rowe RN) Outcome: Patient will have Clear Lung Sounds (Tiffanie Rowe RN) Status: Ongoing (Tiffanie Rowe RN) Outcome: Patient will have Vital Signs within Expected Range (Tiffanie Rowe RN) Status: Ongoing (Tiffanie Rowe RN) Outcome: Urine Output will be within Expected Range (Tiffanie Rowe RN) Status: Ongoing (Tiffanie Rowe RN) Outcome: Patient will have Minimal Generalized or Upper Extremity Edema (Tiffanie Rowe RN) Status: Ongoing (Tiffanie Rowe RN) Injury State: Risk For (Tiffanie Rowe RN) Related To: Labor and Delivery Process; Anesthesia; Risk to Status; Uteroplacental Perfusion; Decreased Mobility; Hemorrhage, Placenta Previa and or Placental Abruption (Tiffanie Rowe RN) Goal(s): Patient will Remain Free from Injury (Tiffanie Rowe RN) Interventions: Monitoring as per Hospital Protocol; Assess Neurological Status; Perform Risk Assessment of Patients with Induction and ; Perform Fall Risk Assessment and Prevention per Hospital Protocol; Perform DVT Risk Assessment and Prophylaxis per Hospital Protocol; Ensure that Oxygen, Suction, and Resuscitation Medications and Equipment are Readily Available; Confirm Patient ID Prior to Procedure(s) and Medication Administration per Hospital Policy (Tiffanie Rowe RN) Outcome: Successful Fall Risk Prevention (Tiffanie Rowe RN) Status: Ongoing (Tiffanie Rowe RN) Outcome: Patient will Deliver Infant without Adverse [place] (Tiffanie Rowe RN) Status: Ongoing (Tiffanie Rowe RN) Outcome: Patient's Neurological Status will Remain Stable (Tiffanie Rowe RN) Status: Ongoing (Tiffanie Rowe RN) Impaired Skin Integrity State: Risk For (Tiffanie Rowe RN) Related To: Vaginal Delivery; Invasive Procedures (Tiffanie Rowe, DELIA) Goal(s): Patient will Maintain Optimal Skin Integrity, Free of Breakdown, Injury or Infection (Tiffanie Rowe RN) Interventions: Complete Screening for Pressure Ulcer Risk and Initiate Protocol per Hospital Policy; Monitor Site of Skin Impairment for Color Changes, Redness, Swelling, Warmth, Pain or Other Signs of Infection; Encourage and Assist with Position Changes; Monitor Patient's Mobility Status; Provide Adequate Nutrition and Fluids; Teach Patient Appropriate Hygienic Care; Teach Patient/Family Skin Care Management (Tiffanie Rowe, DELIA) Outcome: Patient will not have Evidence of Injury Such as Skin Breakdown, Scrapes, Cuts, or Bruising (Tiffanie Rowe RN) Status: Ongoing (Tiffanie Rowe RN) Outcome: Patient will Report Any Altered Sensation or Pain at Site of Skin Impairment (Tiffanie Rowe RN) Status: Ongoing (Tiffanie Rowe RN) Outcome: Patients Incisions and Wounds will be without Signs or Symptoms of Infection (Tiffanie Rowe RN) Status: Ongoing (Tiffanie Rowe RN) Outcome: Patient will Demonstrate Understanding of Plan to Heal Skin and Prevent Reinjury and Verbalize Risk Factors (Tiffanie Rowe RN) Status: Ongoing (Tiffanie Rowe RN) Nutrition State: Risk For (Tiffanie Rowe RN) Related To: ; (Tiffanie Rowe, DELIA) Goal(s): Patient will have an Intake of Nutrients Sufficient to Meet Metabolic Needs (Tiffanie Rowe RN) Interventions: Nutritional Screening and Assessment per Hospital Policy; Consult Hand Knitter for Further Assessment and Recommendations Regarding Food Preferences and Nutritional Support; Allow Patient to Plan and Order Diet when Possible; Monitor Laboratory Values That Indicate Nutritional Well-being; Consult Proposal Director for Nutritional Support Regarding Requirements; Document Actual Weight Initially and Weekly (Do Not Estimate); Encourage Patient Participation in Maintaining a Food Log as Indicated; Educate Patient on the Importance of Maintaining an Adequate Caloric Intake (Tiffanie Rowe RN) Outcome: Patient will Receive Adequate Calories and Fluid Volume to Meet Metabolic Needs (Tiffanie Rowe RN) Status: Ongoing (Tiffanie Rowe RN) Outcome: Patient will Select Foods or Meals that Support Adequate Nutrition (Tiffanie Rowe RN) Status: Ongoing (Tiffanie Rowe RN)
[2016-05-29] MEDS: IBUPROFEN 800 MG TABLET PO SCH ×2 (02:20→09:18)
--- NOTE | 2016-05-29 06:01 | L&D Current Admission ---
Current Admit Datetime Report Generated by CPN: 05/29/2016 06:00 ADMISSION INFORMATION Current Admit Date/Time: 05/27/2016 08:34 (05/27/2016 08:34:Tiffanie Rowe RN) Reason for Admission: Induction of Labor (05/27/2016 08:34:Tiffanie Rowe RN) Chief Complaint: Scheduled Induction of Labor (05/27/2016 09:00:Tiffanie Rowe RN) EGA per Dates: 41.0 (05/27/2016 08:34:QS system process) Method of Arrival: Ambulatory (05/27/2016 08:34:Tiffanie Rowe RN) Reason for Induction: Postterm (05/27/2016 08:34:Tiffanie Rowe RN) Records Available: Yes (05/27/2016 08:34:Tiffanie Rowe RN) General Admission Information: Reviewed (05/27/2016 08:34:Tiffanie Rowe RN) BELONGINGS/ADVANCED DIRECTIVES Valuables/Personal Effects: Cell Phone (05/27/2016 08:34:Tiffanie Rowe RN) Other Belongings: SEE VALUABLES CONSENT (05/27/2016 08:34:Tiffanie Rowe RN) Disposition of Belongings: Kept with Patient (05/27/2016 08:34:Tiffanie Rowe RN) Advance Direct for Healthcare: No, and Wants No Information (05/27/2016 08:34:Tiffanie Rowe RN) Indicate Intent if Not With Pt: RECEIVED IN REGISTRATION (05/27/2016 08:34:Tiffanie Rowe RN) Durable Power of Emergency Vehicle Dispatcher: No (05/27/2016 08:34:Tiffanie Rowe RN) Living Will: No (05/27/2016 08:34:Tiffanie Rowe RN) Organ Donor: Undecided (05/27/2016 08:34:Tiffanie Rowe RN) Pt Rights Information Given: Yes (05/27/2016 08:34:Tiffanie Rowe RN) Pt Understands Pt Rights: Yes (05/27/2016 08:34:Tiffanie Rowe RN) LEARNING ASSESSMENT Knowledge Level: Understands L_D Process; Understands Care Activities; Understands Diagnosis (05/27/2016 08:34:Tiffanie Rowe RN) Barriers to Learning: None (05/27/2016 08:34:Tiffanie Rowe RN) Learning Readiness: Motivated (05/27/2016 08:34:Tiffanie Rowe RN) Learns Best By: 1 to 1 Instruction; Reading; Videos; Demonstration (05/27/2016 08:34:Tiffanie Roew RN) Learning Needs: Labor and Delivery Process; Pain Management; Symptoms to Report; Treatment Plan; Medication; Diagnosis; Nutrition; Equipment; Infant Care; Community Resources (05/27/2016 08:34:Tiffanie Rowe RN) DOMESTIC VIOLANCE SCREENING Dom Viol Threatened/Hurt: No (05/27/2016 08:34:Tiffanie Rowe RN) Hx of Abuse/Neglect past 2yrs: No (05/27/2016 08:34:Tiffanie Rowe RN) Feel Unsafe Going Home: No (05/27/2016 08:34:Tiffanie Rowe RN) Addt'l Observ Indicating Abuse: No (05/27/2016 08:34:Tiffanie Rowe RN) Reason Unable to Complete Screen: N/A, Screen Completed (05/27/2016 08:34:Tiffanie Rowe RN) Considered Personal Harm/Suicide: No (05/27/2016 08:34:Tiffanie Rowe RN) NUTRITIONAL/FUNCTIONAL SCREENING Problem with Appetite >5 Days: No (05/27/2016 08:34:Tiffanie Rowe RN) Chew/Swallow Difficulties: No (05/27/2016 08:34:Tiffanie Rowe RN) Inappropriate Wt Gain/Loss: No (05/27/2016 08:34:Tiffanie Rowe RN) Presence Skin Breakdown/Ulcer: No (05/27/2016 08:34:Tiffanie Rowe RN) Special Diet: No (05/27/2016 08:34:Tiffanie Rowe RN) Pt Requests Clam Digger Visit: No (05/27/2016 08:34:Tiffanie Rowe RN) Hx of Any of the Following?: N/A (05/27/2016 08:34:Tiffanie Rowe RN) New Diagnosis of: N/A (05/27/2016 08:34:Tiffanie Rowe RN) Requires Assist w/Ambulation: No (05/27/2016 08:34:Tiffanie Rowe RN) Uses Assist Device to Ambulate: No (05/27/2016 08:34:Tiffanie Rowe RN) Pt Requires Help w/ADL's: No (05/27/2016 08:34:Tiffanie Rowe RN)
--- NOTE | 2016-05-29 06:01 | L&D General Admission ---
General Admit Datetime Report Generated by CPN: 05/29/2016 06:00 INFORMATION Patient Age: 25 (04/06/2016 15:18:QS system process) EDC: 05/20/2016 00:00 (05/27/2016 02:11:Rachelle Fernandes RN) : 2 (05/27/2016 02:11:Rachelle Fernandes RN) Para: 0 (05/27/2016 02:11:Rachelle Fernandes RN) Term: 0 (05/27/2016 02:11:Rachelle Fernandes RN) : 0 (05/27/2016 02:11:Rachelle Fernandes RN) Spontaneous Abortions: 0 (05/27/2016 02:11:Rachelle Fernandes RN) Induced Abortions: 1 (05/27/2016 02:11:Rachelle Fernadnes RN) Livin (05/27/2016 02:11:Rachelle Fernandes RN) Cesareans: 0 (05/27/2016 02:11:Rachelle Fernandes RN) VBACs: 0 (05/27/2016 02:11:Rachelle Fernandes RN) Ectopic: 0 (05/27/2016 02:11:Rachelle Fernandes RN) Multiple Births: 0 (05/27/2016 02:11:Rachelle Fernandes RN) Baby, Number in Womb: 1 (05/27/2016 02:11:Rachelle Fernandes RN) 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[facility] (05/27/2016 02:11:Rachelle Fernandes RN) Month of 1st Visit: November 2015 (05/27/2016 02:11:Rachelle Fernandes RN) Adequate Care: Yes (05/27/2016 02:11:Tiffanie Rowe RN) Height (in): 67 (05/27/2016 23:32:QS system process) ALLERGIES Medication Allergy: Yes (05/27/2016 02:11:Tiffanie Rowe RN) Medication Allergies: codeine (06/02/2013) (04/06/2016 15:18:QS system process) Latex Allergy: No Latex Allergies (05/27/2016 02:11:Tiffanie Rowe RN) Food Allergies: SHRIMP, VINEET MUSTARD (05/27/2016 02:11:Tiffanie Rowe RN) Environmental Allergies: NONE (05/27/2016 02:11:Tiffanie Rowe RN) COMMUNICATION Primary Language: Bermudian (05/27/2016 02:11:Tiffanie Rowe RN) Medical Tx Preferred Language: Bermudian (05/27/2016 02:11:Tiffanie Rowe RN) Communication Barrier(s): None (05/27/2016 02:11:Tiffanie Rowe RN) DEMOGRAPHICS Address: [address] [place], [place] [address] [address] (04/06/2016 15:18:QS system process) Zipcode: [address] (04/06/2016 15:18:QS system process) Home (04/06/2016 15:18:QS system process) SSN: [id number] (04/06/2016 15:18:QS system process) Next of Kin Name: TRAVIS MCKEON (04/06/2016 15:18:QS system process) Next of Kin (04/06/2016 15:18:QS system process) Next of Kin Relationship: MO (04/06/2016 15:18:QS system process) Date of : 1990 (04/06/2016 15:18:QS system process) Marital Status: Single (04/06/2016 15:18:QS system process) Sex: Female (04/06/2016 15:18:QS system process) Race: (04/06/2016 15:18:QS system process) Ethnicity: Non- or (04/06/2016 15:18:QS system process) Uatsdin: None (04/06/2016 15:18:QS system process) DRUG AND ALCOHOL USE Alcohol: No (05/27/2016 02:11:Tiffanie Rowe RN) Cigarettes: Never Smoker. [id number] (05/27/2016 02:11:Tiffanie Rowe RN) Marijuana: No (05/27/2016 02:11:Tiffanie Rowe RN) Cocaine: No (05/27/2016 02:11:Tiffanie Rowe RN) Other Illicit Drugs: No (05/27/2016 02:11:Tiffanie Rowe RN) VACCINE HISTORY Influenza Vaccine: No (05/27/2016 02:11:Tiffanie Rowe RN) Pneumococcal Vaccine: No (05/27/2016 02:11:Tiffanie Rowe RN) Tetanus Vaccine: Uncertain (05/27/2016 02:11:Tiffanie Rowe RN) Tdap Vaccine: No (05/27/2016 02:11:Tiffanie Rowe RN) Hepatitis B Vaccine: Yes (05/27/2016 02:11:Tiffanie Rowe RN) Broth Setter: [facility] (05/27/2016 02:11:Tiffanie Rowe RN) Feeding Preference: Breast (05/27/2016 02:11:Tiffanie Rowe RN) Benefit of Breast Feed Discussed: Yes (05/27/2016 02:11:Tiffanie Rowe RN) Circumcision: N/A (05/27/2016 02:11:Tiffanie Rowe RN) Classes Attended: Yes (05/27/2016 02:11:Tiffanie Rowe RN) Tubal Ligation: No (05/27/2016 02:11:Tiffanie Rowe RN) Tubal Authorization Signed: N/A (05/27/2016 02:11:Tiffanie Rowe RN) Consent: N/A (05/27/2016 02:11:Tiffanie Rowe RN) Consent Signed: N/A (05/27/2016 02:11:Tiffanie Rowe RN) Pain Management Plans: Epidural (05/27/2016 02:11:Tiffanie Rowe RN) Plans for Labor and Delivery: None (05/27/2016 02:11:Tiffanie Rowe RN) Support Person: LAURA (05/27/2016 02:11:Tiffanie Rowe RN) Support Person Relationship: Significant Other (05/27/2016 02:11:Tiffnaie Rowe RN) Cultural/Spritual Practice: No (05/27/2016 02:11:Tiffanie Rowe RN) Spir/Cult Dietary Needs: No (05/27/2016 02:11:Tiffanie Rowe RN) LIVING SITUATION/DISCHARGE PLAN Living Arrangements: House (05/27/2016 02:11:Tiffanie Rowe RN) Adequate Access to:: Electric; Heat; Refrigeration; Plumbing/Running water; Phone; Transportation (05/27/2016 02:11:Tiffanie Rowe RN) WIC Program: Yes (05/27/2016 02:11:Tiffanie Rowe RN) 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 (05/27/2016 02:11:Tiffanie Rowe RN) Person to Help after Discharge: RIGO (05/27/2016 02:11:Tiffanie Rowe RN) Currently Using Commun Resources: Yes (05/27/2016 02:11:Tiffanie Rowe RN) Specify Current Resource Used: MEDICAID, FOOD STAMPS (05/27/2016 02:11:Tiffanie Rowe RN) Outside Agency/Settlement Technician: No (05/27/2016 02:11:Tiffanie Rowe RN) Car Seat for Discharge: Yes (05/27/2016 02:11:Tiffanie Rowe RN) Adoption Requested: No (05/27/2016 02:11:Tiffanie Rowe RN) Pt Contact w/infant Post : N/A (05/27/2016 02:11:Tiffanie Rowe RN) LABS Blood Type: A Positive (05/27/2016 02:11:Rachelle Fernandes RN) Antibody Screen: negative (05/27/2016 02:11:Rachelle Fernandes RN) Hemoglobin: 10.6 L (05/28/2016 06:32:QS system process) Hematocrit: 31.2 L (05/28/2016 06:32:QS system process) MCV: 84 (05/28/2016 06:32:QS system process) Group Beta Strep: negative (05/27/2016 02:11:Rachelle Fernandes RN) Gonorrhea: Negative (05/27/2016 02:11:Rachelle Fernandes RN) Chlamydia: Negative (05/27/2016 02:11:Rachelle Fernandes RN) RPR/VDRL: Nonreactive (05/27/2016 02:11:Rachelle Fernandes RN) HIV Exposure Test: Negative (05/27/2016 02:11:Tiffanie Rowe RN) HIV Results: non-reactive (05/27/2016 02:11:Rachelle Fernandes RN) Hepatitis B: Negative (05/27/2016 02:11:Rachelle Fernandes RN) Rubella: Immune (05/27/2016 02:11:Rachelle Fernandes RN) Pap Test: Normal (05/27/2016 02:11:Tiffanie Rowe RN) OB/PREVIOUS HISTORY Current Procedures: Ultrasound; NST (05/27/2016 02:11:Tiffanie Rowe RN) History of Previous : No (05/27/2016 02:11:Tiffanie Rowe RN) History of Gestational Diabetes: No (05/27/2016 02:11:Tiffanie Rowe RN) History of PIH: No (05/27/2016 02:11:Tiffanie Rowe RN) History of Incompetent Cervix: No (05/27/2016 02:11:Tiffanie Rowe RN) History of Placenta Previa/Abrup: No (05/27/2016 02:11:Tiffanie Rowe RN) History of Macrosomia: No (05/27/2016 02:11:Tiffanie Rowe RN) History of IUGR: No (05/27/2016 02:11:Tiffanie Rowe RN) History of Hemorrhage: No (05/27/2016 02:11:Tiffanie Rowe RN) History of Loss/Stillborn: No (05/27/2016 02:11:Tiffanie Rowe RN) History of : No (05/27/2016 02:11:Tiffanie Rowe RN) History of D (Rh) Sensitization: No (05/27/2016 02:11:Tiffanie Rowe RN) History Recurrent Loss/Stillborn: No (05/27/2016 02:11:Tiffanie Rowe RN) History Depression/PP Depression: No (05/27/2016 02:11:Tiffanie Rowe RN) History of Uterine Anomaly/EDGAR: No (05/27/2016 02:11:Tiffanie Rowe RN) History of Infertility: No (05/27/2016 02:11:Tiffanie Rowe RN) History of ART Treatment: No (05/27/2016 02:11:Tiffanie Rowe RN) History of EDGAR: No (05/27/2016 02:11:Tiffanie Rowe RN) MEDICAL HISTORY Med Hx Diabetes: No (05/27/2016 02:11:Tiffanie Rowe RN) Med Hx Hypertension: No (05/27/2016 02:11:Tiffanie Rowe RN) Med Hx Heart Disease: No (05/27/2016 02:11:Tiffanie Rowe RN) Med Hx Autoimmune Disorder: No (05/27/2016 02:11:Tiffanie Rowe RN) Med Hx Kidney Disease/UTI: No (05/27/2016 02:11:Tiffanie Rowe RN) Med Hx Neurologic/Epilepsy: No (05/27/2016 02:11:Tiffanie Ivonne Roulund, RN) Med Hx Psychiatric Disorders: No (05/27/2016 02:11:Tiffanie Rowe RN) Med Hx Hepatitis/Liver Disease: No (05/27/2016 02:11:Tiffanie Rowe RN) Med Hx Varicosities/Phlebitis: No (05/27/2016 02:11:Tiffanie Rowe RN) Med Hx Thyroid Dysfunction: No (05/27/2016 02:11:Tiffanie Rowe RN) Med Hx Trauma/Violence: No (05/27/2016 02:11:Tiffanie Rowe RN) Med Hx Blood Transfusion: No (05/27/2016 02:11:Tiffanie Rowe RN) Med Hx Pulmonary (Asthma,TB): Yes (05/27/2016 02:11:Rachelle Fernandes RN) Med Hx Breast: No (05/27/2016 02:11:Tiffanie Rowe RN) Med 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 (05/27/2016 02:11:Tiffanie Rowe RN) Med Hx Hospitalization/Surgery: No (05/27/2016 02:11:Tiffanie Rowe RN) Med Hx Anesthetic Complications: No (05/27/2016 02:11:Tiffanie Rowe RN) Med Hx Abnormal Pap Smear: No (05/27/2016 02:11:Tiffanie Rowe RN) Other Medical Diseases: No (05/27/2016 02:11:Tiffanie Rowe RN) Med Hx Significant Family Hx: No (05/27/2016 02:11:Tiffanie Rowe RN) Details of Med/Surg Hx: asthma- LAST EPISODE- 22 Y/O- RESCUE INHALER (05/27/2016 02:11:Tiffanie Rwoe RN) INFECTIOUS HISTORY Inf Hx Gonorrhea: No (05/27/2016 02:11:Tiffanie Rowe RN) Inf Hx Chlamydia: No (05/27/2016 02:11:Tiffanie Rowe RN) Inf Hx Syphilis: No (05/27/2016 02:11:Tiffanie Rowe RN) Inf Hx HIV/AIDS: No (05/27/2016 02:11:Tiffanie Rowe RN) Inf Hx Human Papilloma Virus: No (05/27/2016 02:11:Tiffanie Rowe RN) Inf Hx Pt/Partner Genital Herpes: No (05/27/2016 02:11:Tiffanie Rowe RN) Inf Hx Tuberculosis/Exposure: No (05/27/2016 02:11:Tiffanie Rowe RN) Inf Hx Hepatitis B,C: No (05/27/2016 02:11:Tiffanie Rowe RN) Inf Hx Rash or Viral Illness: No (05/27/2016 02:11:Tiffanie Rowe RN) GENETIC HISTORY Gen Hx Age >=35 at CAROL: No (05/27/2016 02:11:Tiffanie Rowe RN) Gen Hx Thalassemia: No (05/27/2016 02:11:Tiffanie Rowe RN) Gen Hx Congenital Heart Defect: No (05/27/2016 02:11:Tiffanie Rowe RN) Gen Hx Neural Tube Defect: No (05/27/2016 02:11:Tiffanie Rowe RN) Gen Hx Down's Syndrome: No (05/27/2016 02:11:Tiffanie Rowe RN) Gen Hx Mohit-Sachs: No (05/27/2016 02:11:Tiffanie Rowe RN) Gen Hx Paul: No (05/27/2016 02:11:Tiffanie Rowe RN) Gen Hx Familial Dysautonomia: No (05/27/2016 02:11:Tiffanie Rowe RN) Gen Hx Sickle Cell Disease/Trait: No (05/27/2016 02:11:Tiffanie Rowe RN) Gen Hx Hemophilia/Blood Disorder: No (05/27/2016 02:11:Tiffanie Rowe RN) Gen Hx Muscular Dystrophy: No (05/27/2016 02:11:Tiffanie Rowe RN) Gen Hx Cystic Fibrosis: No (05/27/2016 02:11:Tiffanie Rowe RN) Gen Hx Huntingtons Chorea: No (05/27/2016 02:11:Tiffanie Rowe RN) Gen Hx Mental Retardation/Autism: No (05/27/2016 02:11:Tiffanie Rowe RN) Gen Hx Tested for Fragile X: No (05/27/2016 02:11:Tiffanie Rowe RN) Gen Hx Other Inher/Chromosomal: No (05/27/2016 02:11:Tiffanie Rowe RN) Gen Hx Maternal Metabolic DO: No (05/27/2016 02:11:Tiffanie Rowe RN) Gen Hx Pt Father or FOB Defect: No (05/27/2016 02:11:Tiffanie Rowe RN) Gen Hx Other Genetic History: No (05/27/2016 02:11:Tiffanie Rowe RN) Gen Hx Drugs/Meds since LMP: No (05/27/2016 02:11:Tiffanie Rowe RN) Details of Genetic History: FOB SISTER BORN WITH CONDITION OF SWELLING ON BRAIN (05/27/2016 02:11:Tiffanie Rowe RN)
[2016-05-29] MEDS: HYDROCODONE/ACETAMINOPHEN 5-325 MG TABLET PO PRN (07:26)
[2016-05-29 09:10] VITALS: BP 126/86
[2016-05-29] MEDS: DOCUSATE SODIUM 100 MG CAPSULE PO SCH (09:17)
[2016-05-29] MEDS: FERROUS SULFATE 325 MG TABLET PO SCH (09:17)
[2016-05-29] MEDS: SENNOSIDES/DOCUSATE 8.6-50 MG 1 EACH TABLET PO SCH (09:18)
[2016-05-29] MEDS: PRENATAL VITAMIN W-O CA NO5/FE FUMARATE/FA CAPSULE PO SCH (09:18)
--- NOTE | 2016-05-29 11:04 | PDOC DISCHARGE SUMMARY ---
Final Diagnosis Discharge Date: 05/29/16 - Final Diagnosis (1) Vaginal delivery Is this a current diagnosis for this admission?: Yes Discharge Data - Discharge Medication Home Medications: Diphenhydramine HCl [Benadryl] 1 tab PO Q6 PRN 05/27/16 Vit/Iron Fumarate/FA [ Tablet] 1 tab PO DAILY 05/27/16 Ibuprofen [Motrin 800 mg Tablet] 800 mg PO Q8A #60 tablet 05/28/16 Reason(s) for Admission: Induction of Labor Procedures: NST Intrapartum Procedure(s): Spontaneous Vaginal Delivery - Diagnosis Test Laboratory: Temp Pulse Resp BP Pulse Ox 97.5 F 69 16 126/87 H 100 05/28/16 08:10 05/28/16 08:10 05/28/16 08:10 05/28/16 08:10 05/28/16 08:10 05/27/16 05/27/16 05/28/16 08:44 09:10 06:32 RBC 3.67 L 3.71 L Hgb 10.6 L 10.6 L Hct 30.7 L 31.2 L Urine Opiates Screen NEGATIVE - Discharge information/Instructions Discharge Activity: Activity As Tolerated, Pelvic Rest Discharge Diet: Regular Disposition: HOME, SELF-CARE Follow up with: [facility] in: 4, Weeks
== END 2016-05-29 12:55 | disposition home or self-care (01) | DRG 775 ==
LOC: LR 08:32 → EEVIPCON 08:32 → 2S 20:55
PROVIDERS: ADMIT Obstetrics & Gynecology; ATTEND Obstetrics & Gynecology
PROC: 10E0XZZ Delivery of Products of Conception, External Approach (ICD-10-PCS; principal; 2016-05-27)
PROC: 10907ZC Drainage of Amniotic Fluid, Therapeutic from Products of Conception, Via Natural or Artificial Opening (ICD-10-PCS; 2016-05-27)
PROC: 4A1HXCZ Monitoring of Products of Conception, Cardiac Rate, External Approach (ICD-10-PCS; 2016-05-27)
PROC: 3E0234Z Introduction of Serum, Toxoid and Vaccine into Muscle, Percutaneous Approach (ICD-10-PCS; 2016-05-28)
DX: O48.0 Post-term pregnancy (principal); O76 Abnormality in fetal heart rate and rhythm complicating labor and delivery; Z3A.41 41 weeks gestation of pregnancy; Z37.0 Single live birth; Z23 Encounter for immunization
CPT/HCPCS: 36415; 80307; 81005; 85025; 85027; 86592; 86850; 86900; 86901; 94760; J2590; J3490

== ENCOUNTER 2018-04-25 16:47 | Emergency (ER) | payer MEDICAID ==
[2018-04-25] MEDS ORDERED: ACETAMINOPHEN 325 MG TABLET PO ONE (17:00)
[2018-04-25] MEDS ORDERED: KETOROLAC TROMETHAMINE INJ/PF 30 MG/1 ML SDV IV ONE (18:09)
[2018-04-25] MEDS ORDERED: RINGERS SOLUTION,LACTATED 1,000 ML IV ONE (18:09)
--- NOTE | 2018-04-25 18:10 | ER Document Report ---
ED Medical Screen (RME) - General Chief Complaint: Flu Symptoms Stated Complaint: FLU LIKE SYMPTOMS Time Seen by Provider: 04/25/18 18:06 Primary Care Provider: LOLLY ROSA MD [Primary Care Provider] - Follow up as needed Notes: Chief complaint: Body aches and pain History of complain:( obtained from----patient) 27 years old female was diagnosed with influenza 2 days ago. Given Tamiflu. She was unable to control her temperature spiking. Having generalized body aches and pain. General fatigue weakness therefore present to the ED. PHYSICAL EXAMINATION: GENERAL: well-nourished, appears sick. General fatigue and is noted. HEAD: Atraumatic, normocephalic. EYES: Pupils equal round and reactive to light, extraocular movements intact, conjunctiva are normal. ENT: Nares patent, oropharynx clear without exudates. Moist mucous membranes. NECK: Normal range of motion, supple without lymphadenopathy LUNGS: Breath sounds clear to auscultation bilaterally and equal. No wheezes rales or rhonchi. HEART: Regular rate and rhythm without murmurs ABDOMEN: Soft, nontender, nondistended abdomen. No guarding, no rebound. No masses appreciated. Examination of genitals-deferred Musculoskeletal: Normal range of motion, no pitting or edema. No cyanosis. NEUROLOGICAL: Cranial nerves grossly intact. Normal speech, normal gait. Normal sensory, motor exams PSYCH: Normal mood, normal affect. SKIN: Warm, Dry, normal turgor, no rashes or lesions noted. TRAVEL OUTSIDE OF THE [place] IN LAST 30 DAYS: No - Related Data Allergies/Adverse Reactions: codeine [Codeine] Adverse Reaction (Verified 04/25/18 16:49) Past Medical History Pulmonary Medical History: Reports: Hx Asthma Renal/ Medical History: Denies: Hx Peritoneal Dialysis Musculoskeltal Medical History: Reports Hx Musculoskeletal Deformity, Reports Hx Musculoskeletal Trauma Traumatic Medical History: Reports: Hx Fractures Past Surgical History: Reports: Hx Adenoidectomy, Hx Oral Surgery, Hx Orthopedic Surgery, Hx Tonsillectomy - Immunizations Immunizations up to date: Yes Hx Diphtheria, Pertussis, Tetanus Vaccination: Yes - tetnus 2 years ago Physical Exam - Vital signs Vitals: Temp Pulse Resp BP Pulse Ox 102.1 F H 129 H 20 119/85 99 04/25/18 16:52 04/25/18 16:52 02/13/19 16:52 04/25/18 16:52 04/25/18 16:52 Course - Vital Signs Vital signs: Temp Pulse Resp BP Pulse Ox 102.1 F H 129 H 20 119/85 99 04/25/18 16:52 04/25/18 16:52 04/25/18 16:52 04/25/18 16:52 04/25/18 16:52 Doctor's Discharge - Discharge Referrals: LOLLY ROSA MD [Primary Care Provider] - Follow up as needed
[2018-04-25 18:56] LABS: ABSOLUTE LYMPHOCYTES (AUTO) 1.2 10^3/uL (0.5-4.7); ABSOLUTE MONOCYTES (AUTO) 1.2 10^3/uL (0.1-1.4); ABSOLUTE NEUT (AUTO) 5.3 10^3/uL (1.7-8.2); BASOPHILS % (AUTO) 0.4 % (0-2); EOSINOPHILS % (AUTO) 0.1 % (0-6); HEMATOCRIT 39.6 % (36.0-47.0); HEMOGLOBIN 13.9 g/dL (12.0-15.5); LYMPHOCYTES % (AUTO) 15.6 % (13-45); MEAN CORPUSCULAR HEMOGLOBIN 29.3 pg (27.0-33.4); MEAN CORPUSCULAR HGB CONC 35.1 g/dL (32.0-36.0); MEAN CORPUSCULAR VOLUME 83 fl (80-97); MONOCYTES % (AUTO) 15.6 % (3-13); PLATELET COUNT 236 10^3/uL (150-450); RED BLOOD COUNT 4.75 10^6/uL (3.72-5.28); RED CELL DISTRIBUTION WIDTH 14.5 % (11.5-14.0); SEGMENTED NEUTROPHILS % (AUTO) 68.3 % (42-78); TOTAL CELLS COUNTED % (AUTO) 100 %; WHITE BLOOD COUNT 7.7 10^3/uL (4.0-10.5)
[2018-04-25 19:15] LABS: ALANINE AMINOTRANSFERASE 22 U/L (9-52); ALBUMIN 4.9 g/dL (3.5-5.0); ALKALINE PHOSPHATASE 39 U/L (38-126); ANION GAP 14 (5-19); ASPARTATE AMINO TRANSFERASE 32 U/L (14-36); BILIRUBIN,DIRECT 0.4 mg/dL (0.0-0.4); BILIRUBIN,TOTAL 0.8 mg/dL (0.2-1.3); BLOOD UREA NITROGEN 10 mg/dL (7-20); CALCIUM 9.2 mg/dL (8.4-10.2); CARBON DIOXIDE 22 mmol/L (22-30); CHLORIDE 105 mmol/L (98-107); GLUCOSE 91 mg/dL (75-110); POTASSIUM 4.2 mmol/L (3.6-5.0); SODIUM 141.4 mmol/L (137-145); TOTAL PROTEIN 8.2 g/dL (6.3-8.2)
--- NOTE | 2018-04-25 19:15 | ER Document Report ---
ED General - General Chief Complaint: Flu Symptoms Stated Complaint: FLU LIKE SYMPTOMS Time Seen by Provider: 04/25/18 18:06 Primary Care Provider: LOLLY ROSA MD [ACTIVE STAFF] - Follow up as needed Mode of Arrival: Ambulatory Information source: Patient TRAVEL OUTSIDE OF THE [place] IN LAST 30 DAYS: No - HPI Patient complains to provider of: Flu, fever won't break, vomiting Onset: Other - 2 days ago Onset/Duration: Sudden Quality of pain: No pain Severity: Moderate Associated symptoms: Body/muscle aches, Chills, Nonproductive cough, Fever, Nausea, Vomiting. denies: Diarrhea Exacerbated by: Denies Relieved by: Denies Notes: Patient is a 27-year-old female with moderate asthma who was diagnosed with influenza yesterday at a walk-in clinic. She returns today because despite starting Tamiflu she is having a fever that never wants to break despite Tylenol and ibuprofen as well as she is had significant number of episodes of emesis yesterday and is not actively taking in fluids today secondary to emesis. - Related Data Allergies/Adverse Reactions: codeine [Codeine] Adverse Reaction (Verified 04/25/18 16:49) Past Medical History - General Information source: Patient - Social History Smoking Status: Unknown if Ever Smoked Family History: Reviewed & Not Pertinent, Arthritis, Malignancy, Thyroid Disfunction Patient has suicidal ideation: No Patient has homicidal ideation: No Pulmonary Medical History: Reports: Hx Asthma Renal/ Medical History: Denies: Hx Peritoneal Dialysis Musculoskeletal Medical History: Reports Hx Musculoskeletal Deformity, Reports Hx Musculoskeletal Trauma Traumatic Medical History: Reports: Hx Fractures Past Surgical History: Reports: Hx Adenoidectomy, Hx Oral Surgery, Hx Orthopedic Surgery, Hx Tonsillectomy - Immunizations Immunizations up to date: Yes Hx Diphtheria, Pertussis, Tetanus Vaccination: Yes - tetnus 2 years ago Review of Systems - Review of Systems Notes: Constitutional: Fevers, chills, malaise, myalgias EENT: No eye redness. No eye pain. No ear pain. No sore throat. Cardiovascular: No chest pain. No palpitations. Respiratory: Nonproductive cough. No wheezing. No respiratory distress Gastrointestinal: Nausea and vomiting. No diarrhea. No abdominal pain Genitourinary: Atraumatic. No lesions. No pain. No discharge. Musculoskeletal: Atraumatic. No swelling. No deformities. Skin: No rash or lesions. Lymphatic: No swollen lymph nodes. Neurologic: No headache. No syncope. Psychiatric: No suicidal or homicidal ideation. Physical Exam - Vital signs Vitals: Temp Pulse Resp BP Pulse Ox 102.1 F H 129 H 20 119/85 99 04/25/18 16:52 04/25/18 16:52 04/25/18 16:52 04/25/18 16:52 04/25/18 16:52 - Notes Notes: General: Well-developed, well-nourished. In no acute distress. Non-toxic appearing. Malaise Cardiac: Well-perfused. Tachycardic. No murmurs, rubs, or gallops. Pulmonary: No respiratory distress. No cyanosis. Bilateral lung patterson are clear to auscultation. Abdominal: Non-distended. Non-rigid. Bowels sounds are present in all four quadrants. No guarding or rebound. HEENT: Head is atraumatic. Conjunctivae not reddened. No tearing. PERRL. EOMI. Orbits atraumatic. No periorbital swelling or erythema. Oropharynx is without erythema, swelling, or exudates. Neck: Supple. No adenopathy. No meningismus. Dermatologic: Warm with good turgor. No rash. Atraumatic. Chest: Atraumatic. No chest wall tenderness to palpation. Musculoskeletal: Moves all extremities well. No range of motion deficits. no muscular or joint tenderness. No paraspinal muscle tenderness. no midline spinal tenderness or step-off. Genitourinary: Examination deferred Neurologic: No gross neurologic deficits. Psychiatric: Normal mood. Course - Re-evaluation Re-evalutation: 04/25/18 19:15 Labs pending. Chest x-ray pending. IV fluids going. 04/25/18 21:39 Patient's fever is broken. Labs are all normal. Chest x-ray negative. Continue flu management. - Vital Signs Vital signs: Temp Pulse Resp BP Pulse Ox 98.8 F 98 18 104/66 98 04/25/18 18:57 04/25/18 18:57 04/25/18 18:57 04/25/18 18:57 04/25/18 18:57 - Laboratory Result Diagrams: 04/25/18 18:42 04/25/18 18:42 Laboratory results interpreted by me: 04/25/18 04/25/18 18:42 20:00 RDW 14.5 H Monocytes % 15.6 H Urine Ketones TRACE H Urine Blood SMALL H Discharge - Discharge Clinical Impression: Influenza Condition: Good Disposition: HOME, SELF-CARE Instructions: Influenza ([facility]) [id number] Referrals: LOLLY ROSA MD [ACTIVE STAFF] - Follow up as needed
--- NOTE | 2018-04-25 19:59 | RADIOLOGY REPORT (SQ) ---
EXAM DESCRIPTION: CHEST 2 VIEWS COMPLETED DATE/TIME: 04/25/2018 7:33 pm REASON FOR STUDY: cough, flu, vomiting COMPARISON: None. EXAM PARAMETERS: NUMBER OF VIEWS: two views TECHNIQUE: Digital Frontal and Lateral radiographic views of the chest acquired. RADIATION DOSE: NA LIMITATIONS: none FINDINGS: LUNGS AND PLEURA: No opacities, masses or pneumothorax. No pleural effusion. MEDIASTINUM AND HILAR STRUCTURES: No masses or contour abnormalities. HEART AND VASCULAR STRUCTURES: Heart normal size. No evidence for failure. BONES: No acute findings. HARDWARE: None in the chest. OTHER: No other significant finding. IMPRESSION: NO ACUTE RADIOGRAPHIC FINDING IN THE CHEST. TECHNICAL DOCUMENTATION: JOB ID: [id number] [employer]- All Rights Reserved Reading location - IP/workstation name: [email or web address]
[2018-04-25 21:29] LABS: APPEARANCE,URINE CLOUDY; BILIRUBIN,URINE NEGATIVE (NEGATIVE); COLOR,URINE YELLOW; GLUCOSE, URINE NEGATIVE (NEGATIVE); KETONES,URINE TRACE mg/dL (NEGATIVE); LEUKOCYTE ESTERASE,URINE NEGATIVE (NEGATIVE); NITRITE,URINE NEGATIVE (NEGATIVE); PROTEIN,URINE NEGATIVE (NEGATIVE); URINE SPECIFIC GRAVITY 1.019; UROBILINOGEN,URINE NEGATIVE mg/dL (<2.0)
[2018-04-25 21:54] VITALS: BP 107/72
== END 2018-04-25 21:51 | disposition home or self-care (01) ==
LOC: ER 16:47
DX: J11.1 Influenza due to unidentified influenza virus with other respiratory manifestations (principal); R50.9 Fever, unspecified; R11.10 Vomiting, unspecified; J45.909 Unspecified asthma, uncomplicated
CPT/HCPCS: 99283; 96361; 96374; 36415; 85025; 80053; 81001; 71046; J3490; J1885; J7120